=== PATIENT | male | born 1940 | race Caucasian/White ===

== ENCOUNTER → 2016-09-09 13:41 | Outpatient (CLI) | payer MEDICARE, BC ==
[2013-09-29 12:50] VITALS: BMI 29.8
[~2016-09-09 13:41] MED LIST: ASPIRIN325 MG PO; BAYER CHEWABLE81 MG PO; BETAPACE 80 MG80 MG PO; CELEBREX200 MG PO; CORDARONE200 MG PO; DUONEB 2.5-0.5 M3 ML UPD; HEMOCYTE PLUS1 CAP PO; ICAPS AREDS1 TAB.SA PO; LEVOTHROID200 MCG PO; NORCO 10/325 TA1 TA1 PO; OXYCONTIN10 MG PO; SYSTANE 0.3-0.4%5 ML EACH EYE; VYTORIN 10-20 M1 TAB; VYTORIN 10-20 M1 TAB PO; ZANTAC150 MG PO
== END | disposition home or self-care (01) ==
LOC: D.CT 13:41
DX: M25.552 Pain in left hip (principal); M54.5 Low back pain

== ENCOUNTER 2016-12-21 09:02 | Inpatient (IN) | payer MEDICARE, BC ==
[~2016-12-21] VITALS: Ht 175.3 cm; Wt 92.1 kg
[~2016-12-21 09:02] MED LIST changes: +SYNTHROID125 MCG PO
[2016-12-21 10:47] LABS: APPEARANCE SLT CLOUDY (CLEAR); BILIRUBIN NEGATIVE (NEGATIVE); COLOR YELLOW (YELLOW); GLUCOSE NEGATIVE (NEGATIVE); KETONE NEGATIVE (NEGATIVE); LEUKOCYTE ESTERASE 1+ (NEGATIVE); NITRITE NEGATIVE (NEGATIVE); PROTEIN NEGATIVE (NEGATIVE); UROBILINOGEN NORMAL (NORMAL)
[2016-12-21 10:49] LABS: BACTERIA MODERATE /hpf (NONE SEEN); EPITHELIAL CELLS 0-5 /hpf (0-5); MUCUS <1+ /lpf (NONE SEEN); RED CELLS - URINE 0-5 /hpf (0-5); WHITE CELLS - URINE >50 /hpf (0-5)
[2016-12-21 10:53] LABS: BASOPHILS 0.1 % (0-2); EOSINOPHILS 0.3 % (0-7); HEMATOCRIT 44.1 % (42.0-54.0); HEMOGLOBIN 13.9 g/dL (13.5-17.5); IMMATURE GRANULOCYTES 0.3 % (0-5); LYMPHOCYTES 7.4 % (15-50); MCH 24.4 pg (26.0-34.0); MCHC 31.5 g/dL (31.0-37.0); MCV 77.4 fL (80.0-100.0); MEAN PLATELET VOLUME 9.2 fL (7.4-10.4); MONOCYTES 8.3 % (2-11); NEUTROPHILS 83.6 % (40-80); RDW 17.2 % (11.5-14.5)
[2016-12-21 10:54] LABS: PLATELET COUNT 154 10x3/uL (130-400)
[2016-12-21 11:06] LABS: ALBUMIN 3.3 g/dL (3.4-5.0); ALKALINE PHOSPHATASE 93 U/L (46-116); ALT (SGPT) 32 U/L (10-68); BILIRUBIN - TOTAL 2.43 mg/dL (0.2-1.3); CALC OSMOLALITY 285 mosm/kg (275-300); CALCIUM 8.8 mg/dL (8.5-10.1); CARBON DIOXIDE 27.1 mmol/L (21.0-32.0); CHLORIDE - SERUM 105 mmol/L (98-107); CREATININE - SERUM 0.9 mg/dL (0.6-1.3); GLUCOSE 151 mg/dL (74-106); PROTEIN - SERUM 6.3 g/dL (6.4-8.2); SODIUM 141 mmol/L (136-145); UREA NITROGEN 17 mg/dL (7-18); eGFR NON AFRICAN AMERICAN 87 mL/min (90-120)
[2016-12-21 11:14] LABS: MAGNESIUM - SERUM 1.9 mg/dL (1.8-2.4); PRO BNP 578 pg/mL (0-450)
--- NOTE | 2016-12-21 13:39 | NUR ---
TRANSFER FROM ER BY W/C. ELEANORINTED TO ROOM. CALL LIGHT IN REACH. WILL CONT. PLAN OF CARE.
[2016-12-21] MEDS ORDERED: MOBIC7.5 MG PO (14:08)
[2016-12-21] MEDS ORDERED: BAYER CHEWABLE81 MG PO (14:09)
[2016-12-21] MEDS ORDERED: MULTIPLE VITAMI1 TA1 PO (14:10)
[2016-12-21 14:11] VITALS: BP 113/57; Ht 175.3 cm; Wt 92.1 kg
[2016-12-21 16:00] VITALS: BP 109/62
--- NOTE | 2016-12-21 18:17 | NUR ---
URINE SPECIMEN COLLECTED AND TAKEN TO LAB FOR UA. WILL MONITOR.
--- NOTE | 2016-12-21 19:35 | NUR ---
RESUMED CARE OF PT, LYING IN BED RESPIRATIONS EVEN AND UNLABORED ON ROOM AIR. 70 SR WITH BBB ON TELEMETRY. LEFT FOEREARM INFUSING NS @ KVO. NO NEEDS VOICED AT THIS TIME. WILL CONTINUE TO MONITOR. CALL LIGHT IN REACH. SEE NURSE ASSESSMENT.
[2016-12-21 21:30] VITALS: BP 103/55
--- NOTE | 2016-12-22 00:42 | NUR ---
LYING IN BED WITH EYES CLOSED, CALL LIGHT IN REACH. WILL CONTINUE WITH PLAN OF CARE.
[2016-12-22 01:07] VITALS: BP 150/64
[2016-12-22 05:26] VITALS: BP 108/44
--- NOTE | 2016-12-22 06:48 | NUR ---
NO CHANGES FROM PREVIOUS ASSESSMENT, CALL LIGHT IN REACH.
[2016-12-22 07:35] LABS: BASOPHILS 0.1 % (0-2); EOSINOPHILS 0.2 % (0-7); HEMATOCRIT 41.3 % (42.0-54.0); HEMOGLOBIN 12.9 g/dL (13.5-17.5); IMMATURE GRANULOCYTES 0.3 % (0-5); LYMPHOCYTES 8.2 % (15-50); MCH 24.2 pg (26.0-34.0); MCHC 31.2 g/dL (31.0-37.0); MCV 77.5 fL (80.0-100.0); MEAN PLATELET VOLUME 9.6 fL (7.4-10.4); MONOCYTES 8.7 % (2-11); NEUTROPHILS 82.5 % (40-80); PLATELET COUNT 130 10x3/uL (130-400); RBC 5.33 10x6/uL (4.20-6.10); RDW 17.1 % (11.5-14.5); WBC 18.1 10x3/uL (4.8-10.8)
--- NOTE | 2016-12-22 07:43 | NUR ---
AM ROUNDS - PT RESTING QUIETLY, BREATHING UNLABORED AND EQUAL. DENIES NEEDS AND PAIN AT THIS TIME. SIDE RAILS UP X2, FLOOR FREE FROM CLUTTER, BED IN LOWEST POSTION. INTRODUCED SELF AND PLACED NAME ON WHITE BOARD. WILL CTM.
[2016-12-22 08:00] VITALS: BP 94/53
[2016-12-22 08:05] LABS: ALBUMIN 2.8 g/dL (3.4-5.0); ANION GAP 15.6 mmol/L (8-16); BILIRUBIN - TOTAL 2.6 mg/dL (0.2-1.3); CALCIUM 8.2 mg/dL (8.5-10.1); CARBON DIOXIDE 23.8 mmol/L (21.0-32.0); CREATININE - SERUM 1.2 mg/dL (0.6-1.3); POTASSIUM - SERUM 4.4 mmol/L (3.5-5.1); PROTEIN - SERUM 5.2 g/dL (6.4-8.2)
--- NOTE | 2016-12-22 11:30 | NUR ---
SHOWER AND BED CHANGE COMPLETED. PT DENIES OTHER NEEDS AT THIS TIME. WILL CTM.
--- NOTE | 2016-12-22 11:57 | NUR ---
TICK FOUND ON PT LEFT SHOULDER. REMOVED AND DISPOSED OF. ASSESS PT FOR OTHER TICKS AND DID NOT FIND ANY. PT RESTING QUIETLY, WILL CTM.
[2016-12-22 12:00] VITALS: BP 124/65
--- NOTE | 2016-12-22 15:02 | NUR ---
PT RESTING COMFORTABLY. DENIES NEEDS AND PAIN AT THIS TIME. IV RUNNING NS AT KVO. WILL CTM.
[2016-12-22 16:00] VITALS: BP 92/52
--- NOTE | 2016-12-22 18:41 | NUR ---
PT RESTING QUIETLY. DENIES PAIN AND NEEDS AT THIS TIME. BREATHING UNLABORED AND EQUAL. WILL REPORT ON PT CONDITION.
[2016-12-22 19:00] VITALS: BP 131/69
--- NOTE | 2016-12-22 19:59 | NUR ---
RESUMED CARE OF PT, LYING IN BED RESPIRATIONS EVEN AND UNLABORED ON 2LPM VIA NC. UPDRAFT IN PROGRESS. 80 SR ON TELEMETRY. LEFT FOREARM INFUSING NS @ KVO. NO NEEDS VOICED AT THIS TIME. WILL CONTINUE TO MONTIOR. SEE NURSE ASSESSMENT. CALL LIGHT IN REACH.
[2016-12-23] VITALS (7 sets, daily range): BP systolic 105–142; BP diastolic 49–76
--- NOTE | 2016-12-23 06:42 | NUR ---
NO CHANGES FROM PREVIOUS ASSESSMENT, CALL LIGHT IN REACH. WILL CONTINUE WITH PLAN OF CARE.
[2016-12-23 06:47] LABS: BASOPHILS 0.1 % (0-2); EOSINOPHILS 2.1 % (0-7); HEMATOCRIT 42.9 % (42.0-54.0); HEMOGLOBIN 13.9 g/dL (13.5-17.5); IMMATURE GRANULOCYTES 0.4 % (0-5); LYMPHOCYTES 11.9 % (15-50); MCHC 32.4 g/dL (31.0-37.0); MEAN PLATELET VOLUME 9.6 fL (7.4-10.4); MONOCYTES 6.8 % (2-11); NEUTROPHILS 78.7 % (40-80); PLATELET COUNT 128 10x3/uL (130-400); RBC 5.57 10x6/uL (4.20-6.10); RDW 16.8 % (11.5-14.5)
[2016-12-23 06:54] LABS: WBC 9.5 10x3/uL (4.8-10.8)
[2016-12-23 07:02] LABS: ALBUMIN 2.7 g/dL (3.4-5.0); ANION GAP 12.8 mmol/L (8-16); BILIRUBIN - TOTAL 1.99 mg/dL (0.2-1.3); CALCIUM 8.8 mg/dL (8.5-10.1); CARBON DIOXIDE 29.2 mmol/L (21.0-32.0); CREATININE - SERUM 1.2 mg/dL (0.6-1.3); PROTEIN - SERUM 6.1 g/dL (6.4-8.2)
--- NOTE | 2016-12-23 07:30 | NUR ---
AM ROUNDS - PT RESTING QUIETLY, BREATHING UNLABORED AND EQUAL, 2L O2 VIA NC. REPORTS HAVING DIFFICULTY URINATING LAST NIGHT DUE TO MUCINEX. MUCINEX HAS BEEN D/C. SIDE RAILS UP X2, BED IN LOWEST POSTION, CALL LIGHT IN REACH, WILL CTM.
--- NOTE | 2016-12-23 13:20 | NUR ---
PT TOOK A SHOWER AND LINENS CHANGED. DENIES PAIN AT THIS TIME. PT STILL HAVING A PRODUCTIVE COUGH. WILL CTM.
--- NOTE | 2016-12-23 19:30 | NUR ---
ALERT/AWAKE DENIES PAIN OR ANY NEEDS. HAS 02 AT 2L/NC. RR 18 EVEN U/L. IV IN L FA INTACT SL. TELEMETRY SHOWS 76 SR. ORIENTED TO CALL LIGHT FOR ANY NEEDS.
--- NOTE | 2016-12-23 22:30 | NUR ---
RETURNING TO BED FROM BATHROOM. REQUESTED LIGHTS OFF AND DOOR PARTIAL CLOSED TO SLEEP. BED IS LOW WITH SR UP X2. CL IN REACH.
--- NOTE | 2016-12-24 01:00 | NUR ---
RESTING QUIETLY WITH EYES CLOSED. RR 16 EVEN U/L. NO SIGNS/SYMPTOMS OF PAIN OR DISCOMFORT. WILL CONT TO MONITOR.
[2016-12-24 03:24] VITALS: BP 124/74
[2016-12-24 06:43] LABS: BASOPHILS 0.2 % (0-2); HEMATOCRIT 40.4 % (42.0-54.0); HEMOGLOBIN 12.9 g/dL (13.5-17.5); IMMATURE GRANULOCYTES 0.4 % (0-5); LYMPHOCYTES 34.7 % (15-50); MCH 24.3 pg (26.0-34.0); MCHC 31.9 g/dL (31.0-37.0); MCV 76.1 fL (80.0-100.0); MEAN PLATELET VOLUME 9.8 fL (7.4-10.4); MONOCYTES 12.5 % (2-11); NEUTROPHILS 48.2 % (40-80); PLATELET COUNT 146 10x3/uL (130-400); RBC 5.31 10x6/uL (4.20-6.10)
[2016-12-24 06:49] LABS: WBC 5.5 10x3/uL (4.8-10.8)
[2016-12-24 07:20] LABS: ALBUMIN 2.6 g/dL (3.4-5.0); ALKALINE PHOSPHATASE 67 U/L (46-116); CALCIUM 8.5 mg/dL (8.5-10.1); CARBON DIOXIDE 27.3 mmol/L (21.0-32.0); CHLORIDE - SERUM 107 mmol/L (98-107); CREATINE KINASE 83 UL (21-232); GLUCOSE 89 mg/dL (74-106); POTASSIUM - SERUM 3.6 mmol/L (3.5-5.1); PROTEIN - SERUM 5.8 g/dL (6.4-8.2); SODIUM 141 mmol/L (136-145); eGFR NON AFRICAN AMERICAN 77 mL/min (90-120)
[2016-12-24 07:30] LABS: ALT (SGPT) 34 U/L (10-68); CALC OSMOLALITY 278 mosm/kg (275-300); UREA NITROGEN 11 mg/dL (7-18)
[2016-12-24 08:00] VITALS: BP 145/74
[2016-12-24 12:00] VITALS: BP 125/71
[2016-12-24] MEDS ORDERED: VIBRAMYCIN 100100 MG PO (12:46)
[2016-12-24] MEDS ORDERED: COMBIVENT RESPIM4 GM INH (14:13)
--- NOTE | 2016-12-24 15:31 | NUR ---
Patient Name: SHERLEY CROCKETT Admission Status: ER Accout number: [id number] Admission Date: 12-21-2016 : 1940 Admission Diagnosis:SHORTNESS OF BREATH Attending: ELISEO Current LOS: 3 Anticipated DC Date: 12-24-2016 Planned Disposition: Home Primary Insurance: MEDICARE A & B Discharge Planning Comments: * Is the patient Alert and Oriented? Yes 0 * How many steps to enter\exit or inside your home? 1 0 * PCP DR. LEVY 0 * Pharmacy [facility] 0 * Preadmission Environment Home with Family 0 * ADLs Independent 0 * Equipment Nebulizer 0 * Other Equipment NO MEDICAL EQUIPMENT PROVIDER PREFERENCE 0 * List name and contact numbers for known caregivers / representatives who currently or will assist patient after discharge: ERIC CROCKETT, SPOUSE, 0 * Community resources currently utilized None 0 * Please name any agencies selected above. NONE 0 * Additional services required to return to the preadmission environment? No 0 * Can the patient safely return to the preadmission environment? Yes 0 * Has this patient been hospitalized within the prior 30 days at any hospital? No 0 CM MET WITH PT IN ROOM TO DISCUSS DISCHARGE PLANNING AND NEEDS. PT REPORTS LIVING AT HOME INDEPENDENTLY WITH SPOUSE. PT HAS NO MEDICAL EQUIPMENT AND NO OUTSIDE SERVICES ASSISTING IN THE HOME. CM DISCUSSED AVAILABILITY OF HOME HEALTH, REHAB SERVICES AND MEDICAL EQUIPMENT. PT DENIES DISCHARGE NEEDS, REPORTS HIS IS HERE TO PICK HIM UP FOR DISCHARGE HOME TODAY. IMPORTANT MESSAGE FROM MEDICARE PROVIDED AND EXPLAINED. Stores Despatch Hand: Roberto Hendrix
--- NOTE | 2016-12-24 15:45 | NUR ---
D/C PER PERSONAL VEHICLE W/
== END 2016-12-24 17:15 | disposition home or self-care (01) | DRG 194 ==
LOC: D.ER 09:02 → D.M2 12:40
PROVIDERS: Nurse Practitioner Family; ADMIT Family Medicine Adult Medicine
DX: J18.9 Pneumonia, unspecified organism (principal); N39.0 Urinary tract infection, site not specified; I25.10 Atherosclerotic heart disease of native coronary artery without angina pectoris; S40.262A Insect bite (nonvenomous) of left shoulder, initial encounter; S90.862A Insect bite (nonvenomous), left foot, initial encounter; W57.XXXA Bitten or stung by nonvenomous insect and other nonvenomous arthropods, initial encounter; E78.5 Hyperlipidemia, unspecified; E03.9 Hypothyroidism, unspecified

== ENCOUNTER → 2017-08-25 18:26 | Outpatient (CLI) | payer MEDICARE, BC ==
[2016-12-21 14:11] VITALS: BMI 27.3
[~2017-08-25 18:26] MED LIST changes: +COMBIVENT RESPIM4 GM INH; +MOBIC7.5 MG PO; +MULTIPLE VITAMI1 TA1 PO; +VIBRAMYCIN 100100 MG PO
== END | disposition home or self-care (01) ==
LOC: D.LABREF 18:26
DX: N39.0 Urinary tract infection, site not specified (principal); R31.9 Hematuria, unspecified

== ENCOUNTER → 2017-09-02 09:10 | Outpatient (CLI) | payer MEDICARE, BC ==
[2016-12-21 14:11] VITALS: BMI 27.3
[~2017-09-02 09:10] MED LIST changes: +FLOMAX0.4 MG PO; +PROSCAR5 MG PO
== END | disposition home or self-care (01) ==
LOC: D.US 08-31 10:00 → D.CT 08-31 10:30 → D.US 08-31 10:30 → D.CT 08-31 11:00
DX: R31.9 Hematuria, unspecified (principal); R97.20 Elevated prostate specific antigen [PSA]

== ENCOUNTER 2017-09-09 08:44 | Day surgery (SDC) | payer MEDICARE, BC ==
[2017-09-08 09:47] LABS: HEMATOCRIT 47.6 % (42.0-54.0); HEMOGLOBIN 15.6 g/dL (13.5-17.5); MCH 24.4 pg (26.0-34.0); MCHC 32.8 g/dL (31.0-37.0); MCV 74.5 fL (80.0-100.0); MEAN PLATELET VOLUME 8.8 fL (7.4-10.4); RBC 6.39 10x6/uL (4.20-6.10); RDW 14.2 % (11.5-14.5); WBC 9.3 10x3/uL (4.8-10.8)
[~2017-09-09] VITALS: Ht 175.3 cm; Wt 83.9 kg
--- NOTE | ~2017-09-09 | OP ---
PATIENT NAME: SJ CROCKETT MEDICAL RECORD: [id number] :39 LOCATION:[facility] ADMISSION DATE: SURGEON: SURJIT WIGGINS MD DATE OF OPERATION: 09/09/2017 SURGEON: Surjit Wiggins MD EDUCATIONAL RECRUITER: ANGELA by Manjinder Sen CRNA. PREOPERATIVE DIAGNOSES: Sj hematuria with elevated PSA of 10.07. Abnormal digital rectal examination with a hard left prostatic nodule. PROCEDURE: Cystoscopy and transrectal ultrasound and prostate biopsy. FINDINGS: Left inguinal hernia with fat extending into the scrotum. Buried penis. 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 The prostatic urethra is quite vascular. In the bladder, he has single ureteral orifices bilaterally. No bladder tumors. Heavily trabeculated bladder with diverticula. No bladder stones. On transrectal ultrasound, he has a 75 gram prostate with intraprostatic stones and multiple hypoechoic areas, especially at the left apex. SPECIMENS: Prostate biopsy cores. BLOOD LOSS: None. CLINICAL HISTORY: This is a 77-year-old male, who presented with a history of painless gross hematuria. He was also found to have a PSA elevation of 10.07 on 07/09/2017. He previously had a prostate biopsy by Dr. Bynum in [place], [place] 15 years ago. That biopsy was negative for prostate cancer. He has no family history of prostate cancer. He has significant bladder outlet obstruction symptoms. He was previously on BPH medications, but he ran out of them. He had a hematuria workup, which included urine culture, which showed no growth. Urine cytology was benign. A CT scan of the abdomen and pelvis showed normal kidneys and a very enlarged prostate. There was a large left inguinal hernia with fat going down into the left hemiscrotum. Today, he is having cystoscopy for part of his workup for the hematuria. Also, he will have a transrectal ultrasound and prostate biopsy. He is allergic to CODEINE, MORPHINE, and MUCINEX D. He was given gentamicin 80 grams IV front end engineer to the OR. DESCRIPTION OF PROCEDURE: The patient was given IV sedation. He was placed in the dorsal lithotomy position and prepped and draped. Lidocaine jelly was inserted into the urethra. A 17-Macedonian cystoscope with 30-degree lens was used for visualization. Penile urethra was normal. The bulbar urethra was vascular. The prostatic urethra also was quite vascular. The patient's lateral lobes are large and obstructive. He also has a significant median lobe, which deviates the scope anteriorly. By angling the scope down into the bladder, we could see single ureteral orifices on each side. The bladder wall itself was quite vascular also, but no bladder tumors were seen. Multiple bladder diverticula were noted. No bladder stones were seen. At this point, the bladder was emptied through the cystoscope sheath and then we proceeded to the transrectal ultrasound. The drapes were removed and the transrectal ultrasound probe was introduced. Prostate size measurements were obtained and he has a very large prostate at 75 OPERATIVE REPORT [id number] lay. Intraprostatic stones could be seen. Also, multiple hypoechoic areas could be seen within the substance of the prostate. On the left side, we could see a large hypoechoic nodule extending from the mid portion of the prostate to the apex. We took sextant biopsies with at least 3 cores from each sextant. Once all the specimens were obtained, the procedure was terminated. The patient was then sent to the recovery room. He will have followup with me next week to review his pathology results. Also, I will have him see Dr. Mahoney regarding his left inguinal hernia. TRANSINT:[id number] Voice Confirmation ID: [id number] DOCUMENT ID: [id number] SURJIT WIGGINS MD at 1203 CC: [id number] DICTATION DATE: 09/09/17 1119 KEY CARRIER: 09/09/17 1144 [facility] [address] [place] [address]
[2017-09-09 08:18] VITALS: BP 124/59; Ht 175.3 cm; Wt 83.9 kg
[~2017-09-09 08:44] MED LIST changes: -FLOMAX0.4 MG PO; -PROSCAR5 MG PO
== END 2017-09-09 12:30 | disposition home or self-care (01) ==
LOC: D.OPS 08:44 → D.PAN 09:00 → D.OPS 09:00
PROVIDERS: Anesthesiology
DX: R31.0 Gross hematuria (principal); R97.20 Elevated prostate specific antigen [PSA]; I25.10 Atherosclerotic heart disease of native coronary artery without angina pectoris; I10 Essential (primary) hypertension; Z95.1 Presence of aortocoronary bypass graft; Z01.812 Encounter for preprocedural laboratory examination

== ENCOUNTER 2017-10-24 16:42 | Inpatient (IN) | payer MEDICARE, BC ==
[~2017-10-24] VITALS: Ht 175.3 cm; Wt 84.1 kg
--- NOTE | ~2017-10-24 | CN ---
PATIENT NAME:SHERLEY CROCKETT MEDICAL RECORD: [id number] : 39 LOCATION:D. D.2140 ADMIT DATE: 10/24/17 ACCOUNT: [id number] CONSULTING PHYSICIAN: OLMAN SAAVEDRA MD REFERRING PHYSICIAN: TAMMI PONCE MD DATE OF CONSULTATION: 10/25/2017 HISTORY OF PRESENT ILLNESS: A 77-year-old gentleman with a history of coronary artery disease, status post coronary artery bypass grafting. He has a history of sick sinus syndrome, status post pacemaker placement and dyslipidemia, admitted with syncope, found to have elevated thresholds on his V lead with some pauses. Also, he has been in a mode switch, AAI to DDD. Pacemaker has been reprogrammed. Thresholds are elevated from previous lead output, elevated and turned off autocapture. PAST MEDICAL HISTORY: Includes; 1. History of coronary artery disease. 2. Hypertension. 3. Hyperlipidemia. 4. Hypothyroidism, on replacement. MEDICATIONS: Include Synthroid 125 mcg daily, aspirin 81 daily, Mobic 15 at bedtime, Betapace 80 b.i.d., Vytorin 10. ALLERGIES: PSEUDOEPHEDRINE, CODEINE, MORPHINE, and GUAIFENESIN. SOCIAL HISTORY: . He is a nonsmoker, nondrinker. He is able to take care of all ADLs, does try to walk on a regular basis. REVIEW OF SYSTEMS: The patient reports easy bruising but reports no swollen glands. The patient reports no fever, no night sweats, no significant weight gain, no significant weight loss. No significant exercise tolerance. The patient reports no dry eyes, no irritation, no vision change. Patient reports no difficulty hearing and no ear pain. Patient reports no frequent nose bleeds or nose and sinus problems. Patient reports on arm pain on exertion. No shortness of breath while lying down. No history of heart murmur. Patient reports no cough, no wheezing or coughing up blood. Patient reports no abdominal pain, no vomiting. Normal appetite. No diarrhea and not vomiting blood. No nausea and no constipation. Patient reports no incontinence. No difficulty urinating. No hematuria. No increased frequency. Patient reports no muscle aches. No weakness, no arthralgias, no back pain. No swelling of the extremities. Patient reports no abnormal mole, no jaundice, no rashes. Reports no loss of consciousness. No weakness and no numbness. No seizures, dizziness, or headaches. The patient reports no depression, no sleep disturbance, feeling safe in a relationship and no alcohol abuse. Patient reports on fatigue. Reports no runny nose or sinus pressure. No itching, no hives, and no frequent sneezing. PHYSICAL EXAMINATION: GENERAL: Pleasant gentleman, in no acute distress. VITAL SIGNS: Blood pressure 107/62, pulse 60 and regular. HEENT: Normocephalic, atraumatic. NECK: No bruits noted. HEART: Regular, II/ systolic ejection murmur. LUNGS: Good air excursion. CONSULT REPORT [id number] SHERLEY CROCKETT ABDOMEN: Soft, nontender. EXTREMITIES: Pulses 2+ with no edema. IMPRESSION: Syncope/near syncope related to pacemaker. Changes were made as described above. Okay to discharge from a cardiovascular standpoint. He will be seen back in the office to assess changes. TRANSINT:[id number] Voice Confirmation ID: [id number] DOCUMENT ID: [id number] OLMAN SAAVEDRA MD at 1132 CC: [id number] DICTATION DATE: 10/25/17 1047 BETTING AGENCY COUNTER CLERK: 10/25/17 1139 ADM IN [facility] [address] [place] [address]
--- NOTE | ~2017-10-24 | HP ---
PATIENT: SHERLEY CROCKETT MEDICAL RECORD: [id number] ACCOUNT: [id number] LOCATION:[facility] D.2305 : 39 ADMISSION DATE: 10/24/17 HISTORY AND PHYSICAL EXAMINATION HISTORY OF PRESENT ILLNESS: This 77-year-old gentleman presented to the Emergency Room upon day of admission with complaint of generalized weakness and shortness of breath. The patient was in his usual state of health. He had 2 episodes of what was near syncope at home. did observe both of them. No seizure activity occurred. The patient did fall and briefly bumped his head, had no laceration, bruising or loss of consciousness with that on the second one. He came in for evaluation to be obtained. The patient was resting comfortably in the ICU for monitoring after he had a rapid response on the floor. The patient was admitted to the floor, was in no acute distress at the time, had complaint of some shivering and just feeling cool. IV fluids were going and the patient was given his blanket and observed and then shortly thereafter had a loss of consciousness and monitor showed the patient went into asystole. Rapid response was obtained and the patient was immediately given atropine. He had only a 12-second pulse before initiation of the heart rate returned. The patient has presently been monitored by [facility] and done appropriately. He was moved to the ICU for further monitoring, has been alert, active and going without any difficulty since that time. His is present at his bedside. PAST MEDICAL HISTORY: Significant for history of recent tick fever. He was admitted to the hospital several months ago and worked up appropriately then. He has a history of arrhythmia, coronary artery disease, hyperlipidemia, sleep apnea, multiple arthritic difficulties, BPH, hypertension, hypothyroidism, osteoarthritis, constipation rarely, and glaucoma. PAST SURGICAL HISTORY: Includes gallbladder surgery, bilateral shoulder surgery. He has had partial amputation of finger on his left hand. He has also had 2 partial amputations on his right hand. He has had a thyroidectomy, total knee replacement, right hip surgery, CABG. ALLERGIES: THE PATIENT IS ALLERGIC TO CODEINE, MORPHINE, GUAIFENESIN, AND PSEUDOEPHEDRINE. MEDICATIONS: Include Flomax; Proscar; Levothroid; sotalol, Betapace. He is also on vitamin, aspirin 81 mg, Vytorin, meloxicam and then Systane eye drops. SOCIAL HISTORY: The patient does not smoke, does not drink alcohol. PHYSICAL EXAMINATION: VITAL SIGNS: At the history and physical as below. GENERAL: He is a well-developed, well-nourished, very pleasant 77-year-old white male that is alert, oriented and awake, in no acute distress. EXTREMITIES: He does have surgical scars that are present. He does have a pacemaker present on his left chest wall. HEENT: His pupils are equal, round and reactive to light. Extraocular movements are intact. Oral cavity, oropharynx otherwise clear. NECK: No cervical or pharyngeal adenopathy. No nuchal rigidity. LUNGS: Clear to auscultation bilaterally. HEART: Regular rate and rhythm with a I/ systolic ejection murmur. ABDOMEN: Soft, nontender, positive bowel sounds. No hepatosplenomegaly, no HISTORY AND PHYSICAL [id number] SCARAMUZZA,SHERLEY L masses. EXTREMITIES: Arthritic changes are noted. Partial amputations as described above. NEUROLOGIC: He is able to move all 4 extremities. ASSESSMENT: 1. Arrhythmia. 2. Syncope. 3. Pacemaker adjustment. 4. Coronary artery disease. 5. Hypotension. 6. Asystole that converted with rapid response. 7. Elevated white count. The patient will be admitted to the hospital. We will recheck laboratory on this, monitoring for at least 24 hours observation post-rapid response. Cardiology consultation has been obtained with Dr. Delong and his recommendations are being followed. We will transfer the patient to the floor and continue to monitor. TRANSINT:[id number] Voice Confirmation ID: [id number] DOCUMENT ID: [id number] TAMMI PONCE MD at 1647 CC: [id number] DICTATION DATE: 10/25/17 1207 MOBILE MARKETING SPECIALIST: 10/25/17 1252 ADM IN [facility] [address] [place] [address]
[2017-10-24 17:21] LABS: BASOPHILS 0.1 % (0-2); EOSINOPHILS 1.1 % (0-7); HEMATOCRIT 44.5 % (42.0-54.0); HEMOGLOBIN 14.6 g/dL (13.5-17.5); IMMATURE GRANULOCYTES 0.2 % (0-5); LYMPHOCYTES 16.8 % (15-50); MCH 24.7 pg (26.0-34.0); MCHC 32.8 g/dL (31.0-37.0); MCV 75.2 fL (80.0-100.0); MONOCYTES 7.4 % (2-11); NEUTROPHILS 74.4 % (40-80); PLATELET COUNT 181 10x3/uL (130-400); RBC 5.92 10x6/uL (4.20-6.10); RDW 15.4 % (11.5-14.5); WBC 12.3 10x3/uL (4.8-10.8)
[2017-10-24 17:34] LABS: ALBUMIN 3.9 g/dL (3.4-5.0); ALKALINE PHOSPHATASE 110 U/L (46-116); ALT (SGPT) 44 U/L (10-68); BILIRUBIN - TOTAL 1.58 mg/dL (0.2-1.3); CALC OSMOLALITY 289 mosm/kg (275-300); CALCIUM 9.2 mg/dL (8.5-10.1); CHLORIDE - SERUM 106 mmol/L (98-107); CREATININE - SERUM 0.9 mg/dL (0.6-1.3); GLUCOSE 138 mg/dL (74-106); POTASSIUM - SERUM 4.1 mmol/L (3.5-5.1); SODIUM 143 mmol/L (136-145); UREA NITROGEN 21 mg/dL (7-18); eGFR NON AFRICAN AMERICAN 87 mL/min (90-120)
[2017-10-24 17:37] LABS: CREATINE KINASE 106 UL (21-232); TROPONIN-I 0.017 ng/mL (0.000-0.060)
[2017-10-24 19:59] LABS: APPEARANCE CLEAR (CLEAR); COLOR DK YELLOW (YELLOW)
[2017-10-24 20:00] LABS: BILIRUBIN NEGATIVE (NEGATIVE); GLUCOSE NEGATIVE (NEGATIVE); KETONE NEGATIVE (NEGATIVE); NITRITE NEGATIVE (NEGATIVE); PROTEIN NEGATIVE (NEGATIVE); UROBILINOGEN NORMAL (NORMAL)
[2017-10-24 20:01] LABS: WHITE CELLS - URINE 0-5 /hpf (0-5)
[2017-10-24 20:04] LABS: RED CELLS - URINE 0-5 /hpf (0-5)
[2017-10-24 20:05] LABS: BACTERIA FEW /hpf (NONE SEEN); MUCUS <1+ /lpf (NONE SEEN)
[2017-10-24 23:53] LABS: BASOPHILS 0.1 % (0-2); EOSINOPHILS 0.6 % (0-7); HEMATOCRIT 40.5 % (42.0-54.0); IMMATURE GRANULOCYTES 0.2 % (0-5); LYMPHOCYTES 14.8 % (15-50); MCHC 32.1 g/dL (31.0-37.0); MCV 74.7 fL (80.0-100.0); MEAN PLATELET VOLUME 9.5 fL (7.4-10.4); MONOCYTES 6.1 % (2-11); NEUTROPHILS 78.2 % (40-80); PLATELET COUNT 174 10x3/uL (130-400); RBC 5.42 10x6/uL (4.20-6.10); RDW 15.5 % (11.5-14.5); WBC 12.4 10x3/uL (4.8-10.8)
[2017-10-24 23:57] LABS: INR 1.04 (0.85-1.17); PROTIME 13.2 SECONDS (11.6-15.0)
[2017-10-24 23:58] LABS: APTT 26.8 SECONDS (22.8-39.4)
[2017-10-25] VITALS (23 sets, daily range): BP systolic 93–134; BP diastolic 48–94; Ht 175.3 cm; Wt 84.1 kg
[2017-10-25 00:18] LABS: CALC OSMOLALITY 288 mosm/kg (275-300); CALCIUM 8.7 mg/dL (8.5-10.1); CARBON DIOXIDE 26.1 mmol/L (21.0-32.0); CHLORIDE - SERUM 108 mmol/L (98-107); CKMB 2.5 U/L (0.0-3.6); CREATINE KINASE 89 UL (21-232); CREATININE - SERUM 0.8 mg/dL (0.6-1.3); GLUCOSE 148 mg/dL (74-106); POTASSIUM - SERUM 4.1 mmol/L (3.5-5.1); SODIUM 142 mmol/L (136-145); TROPONIN-I 0.022 ng/mL (0.000-0.060); UREA NITROGEN 20 mg/dL (7-18); eGFR NON AFRICAN AMERICAN > 90 mL/min (90-120)
[2017-10-25] MEDS ORDERED: FLOMAX0.4 MG PO (08:52)
[2017-10-25] MEDS ORDERED: PROSCAR5 MG PO (08:53)
[2017-10-25 13:45] LABS: CKMB 1.7 U/L (0.0-3.6); CREATINE KINASE 85 UL (21-232); TROPONIN-I < 0.017 ng/mL (0.000-0.060)
[2017-10-25 19:00] LABS: CKMB 1.3 U/L (0.0-3.6); CREATINE KINASE 75 UL (21-232)
[2017-10-26 01:05] LABS: CKMB 1.5 U/L (0.0-3.6); CREATINE KINASE 81 UL (21-232); TROPONIN-I 0.017 ng/mL (0.000-0.060)
[2017-10-26 05:09] VITALS: BP 129/60
[2017-10-26 05:14] LABS: BASOPHILS 0.1 % (0-2); EOSINOPHILS 2.9 % (0-7); HEMATOCRIT 39.4 % (42.0-54.0); HEMOGLOBIN 12.6 g/dL (13.5-17.5); IMMATURE GRANULOCYTES 0.2 % (0-5); LYMPHOCYTES 27.6 % (15-50); MCH 24.1 pg (26.0-34.0); MCV 75.5 fL (80.0-100.0); MEAN PLATELET VOLUME 9.2 fL (7.4-10.4); MONOCYTES 9.2 % (2-11); PLATELET COUNT 146 10x3/uL (130-400); RBC 5.22 10x6/uL (4.20-6.10); RDW 15.9 % (11.5-14.5)
[2017-10-26 05:18] LABS: WBC 8.2 10x3/uL (4.8-10.8)
[2017-10-26 05:40] LABS: ALKALINE PHOSPHATASE 86 U/L (46-116); ALT (SGPT) 36 U/L (10-68); BILIRUBIN - TOTAL 1.16 mg/dL (0.2-1.3); CALC OSMOLALITY 286 mosm/kg (275-300); CALCIUM 8.2 mg/dL (8.5-10.1); CARBON DIOXIDE 29.2 mmol/L (21.0-32.0); CHLORIDE - SERUM 108 mmol/L (98-107); CREATININE - SERUM 0.7 mg/dL (0.6-1.3); GLUCOSE 101 mg/dL (74-106); PHOSPHOROUS 3.5 mg/dL (2.5-4.9); POTASSIUM - SERUM 3.9 mmol/L (3.5-5.1); PRO BNP 436 pg/mL (0-450); PROTEIN - SERUM 5.8 g/dL (6.4-8.2); SODIUM 143 mmol/L (136-145); THYROID STIMULATING HORMONE 0.06 uIU/mL (0.36-3.74); UREA NITROGEN 18 mg/dL (7-18); eGFR NON AFRICAN AMERICAN > 90 mL/min (90-120)
[2017-10-26 05:42] LABS: ALBUMIN 2.9 g/dL (3.4-5.0)
[2017-10-26 09:42] VITALS: BP 146/66
[2017-10-26 12:39] VITALS: BP 150/70
== END 2017-10-26 13:37 | disposition home or self-care (01) | DRG 312 ==
LOC: D.ER 16:42 → D.EDHOLD 18:46 → D.M2 18:46 → D.ICU 10-25 00:28 → D.M2 10-25 21:41
PROVIDERS: Emergency Medicine; Family Medicine; Internal Medicine Interventional Cardiology; Physician Assistant Medical
DX: R55 Syncope and collapse (principal); Z45.018 Encounter for adjustment and management of other part of cardiac pacemaker; I25.10 Atherosclerotic heart disease of native coronary artery without angina pectoris; E78.5 Hyperlipidemia, unspecified; G47.30 Sleep apnea, unspecified; N40.0 Benign prostatic hyperplasia without lower urinary tract symptoms; I10 Essential (primary) hypertension; E03.9 Hypothyroidism, unspecified; M19.90 Unspecified osteoarthritis, unspecified site; I95.9 Hypotension, unspecified; D50.9 Iron deficiency anemia, unspecified

== ENCOUNTER 2017-12-03 17:12 | Inpatient (IN) | payer MEDICARE, BC ==
[~2017-12-03] VITALS: Ht 175.3 cm; Wt 87.1 kg
--- NOTE | ~2017-12-03 | DS ---
PATIENT:SHERLEY CROCKETT :38 MEDICAL RECORD: [id number] DISCHARGE SUMMARY ADMISSION DATE: 12/03/17 DISCHARGE DATE: 12/04/17 DATE OF DISCHARGE: 12/04/2017 ADMITTING DIAGNOSES: Severe bradycardia secondary to pacer malfunction, coronary artery disease, hypertension, thoracic aortic aneurysm. DISCHARGE DIAGNOSES: Severe bradycardia secondary to pacer malfunction, coronary artery disease, hypertension, thoracic aortic aneurysm. CONSULTING PHYSICIANS: 1. Mane Delong MD 2. Murphy Patel MD BRIEF HISTORY AND HOSPITAL COURSE: This is a 77-year-old white male who presents with a syncopal episode, had a similar episode a month ago. He has a pacemaker, but it appears not to be functioning correctly. He is on sotalol at home. The patient underwent reprogramming of his pacemaker with subsequent improvement of his rate and rhythm. He was seen in consultation by cardiovascular surgery in regards to 5-cm ascending thoracic aortic aneurysm and will be following up with Dr. Stein upon discharge. The patient was discharged on 12/04 in stable condition with instructions to follow up with Dr. Patel and his primary care physician. See chart for more specifics of his stay. TRANSINT:[id number] Voice Confirmation ID: [id number] DOCUMENT ID: [id number] REAL GONSLAES DO at 1355 CC: [id number] DICTATION DATE: 12/31/171950 SEAM PRESSER: 01/01/18 0002 DIS IN 12/04/17 [id number] [place] [address]
[~2017-12-03 17:12] MED LIST changes: +FLOMAX0.4 MG PO; +PROSCAR5 MG PO
[2017-12-03 17:56] LABS: BASOPHILS 0.3 % (0-2); EOSINOPHILS 3.1 % (0-7); HEMATOCRIT 43.2 % (42.0-54.0); HEMOGLOBIN 14.1 g/dL (13.5-17.5); IMMATURE GRANULOCYTES 0.2 % (0-5); LYMPHOCYTES 18.5 % (15-50); MCH 24.5 pg (26.0-34.0); MCHC 32.6 g/dL (31.0-37.0); MCV 75.1 fL (80.0-100.0); MEAN PLATELET VOLUME 9.2 fL (7.4-10.4); MONOCYTES 8.1 % (2-11); NEUTROPHILS 69.8 % (40-80); PLATELET COUNT 159 10x3/uL (130-400); RBC 5.75 10x6/uL (4.20-6.10); RDW 15.2 % (11.5-14.5); WBC 10.2 10x3/uL (4.8-10.8)
[2017-12-03 18:08] LABS: ALBUMIN 3.5 g/dL (3.4-5.0); ALKALINE PHOSPHATASE 121 U/L (46-116); ALT (SGPT) 31 U/L (10-68); BILIRUBIN - TOTAL 1.66 mg/dL (0.2-1.3); CARBON DIOXIDE 27.9 mmol/L (21.0-32.0); CHLORIDE - SERUM 107 mmol/L (98-107); POTASSIUM - SERUM 3.5 mmol/L (3.5-5.1); PROTEIN - SERUM 6.5 g/dL (6.4-8.2); SODIUM 144 mmol/L (136-145); UREA NITROGEN 18 mg/dL (7-18); eGFR NON AFRICAN AMERICAN 77 mL/min (90-120)
[2017-12-03 18:13] LABS: CREATINE KINASE 53 UL (21-232)
[2017-12-03 18:14] LABS: CALC OSMOLALITY 291 mosm/kg (275-300); GLUCOSE 156 mg/dL (74-106); TROPONIN-I < 0.017 ng/mL (0.000-0.060)
[2017-12-03 18:47] LABS: CKMB 0.7 U/L (0.0-3.6); PRO BNP 321 pg/mL (0-450)
[2017-12-03 18:50] LABS: INR 1.04 (0.85-1.17); PROTIME 13.2 SECONDS (11.6-15.0)
[2017-12-03 18:52] LABS: D-DIMER-QUANTITATIVE 1.62 ug/mLFEU (0.20-0.54)
[2017-12-03 21:33] LABS: THYROID STIMULATING HORMONE 0.09 uIU/mL (0.36-3.74)
[2017-12-03 22:00] VITALS: BP 129/65
[2017-12-03 22:05] VITALS: BP 135/73; BMI 28.4
[2017-12-03 23:00] VITALS: BP 133/68
[2017-12-04] VITALS (14 sets, daily range): BP systolic 102–152; BP diastolic 58–93; Ht 175.3 cm; Wt 87.1 kg
[2018-01-12] MEDS ORDERED: MUCINEX600 MG PO (13:38)
[2018-01-12] MEDS ORDERED: SYSTANE 0.3-0.4%5 ML EACH EYE (13:39)
[2018-01-12] MEDS ORDERED: SINGULAIR10 MG PO (13:40)
[2018-01-12] MEDS ORDERED: AZELASTINE137 MCG/0. NASAL (13:40)
[2018-01-12] MEDS ORDERED: PROAIR HFA ORAL INH (13:41)
[2018-01-12] MEDS ORDERED: POTASSIUM99 M1 (13:42)
[2018-01-12] MEDS ORDERED: VYTORIN 10-40 M1 TAB PO (13:45)
== END 2017-12-04 17:06 | disposition home or self-care (01) | DRG 312 ==
LOC: D.ER 17:12 → D.EDHOLD 19:27 → D.ER 19:27 → D.EDHOLD 19:47 → D.M2 19:47 → D.EDHOLD 21:11 → D.ICU 21:11
PROVIDERS: Family Medicine
DX: R55 Syncope and collapse (principal); T82.119A Breakdown (mechanical) of unspecified cardiac electronic device, initial encounter; I49.5 Sick sinus syndrome; I25.10 Atherosclerotic heart disease of native coronary artery without angina pectoris; E78.5 Hyperlipidemia, unspecified; I10 Essential (primary) hypertension; I71.4 Abdominal aortic aneurysm, without rupture; R00.1 Bradycardia, unspecified

== ENCOUNTER 2018-01-13 07:40 | Day surgery (SDC) | payer MEDICARE, BC ==
[2018-01-12 14:30] LABS: BASOPHILS 0.1 % (0-2); EOSINOPHILS 3.2 % (0-7); HEMATOCRIT 45.1 % (42.0-54.0); HEMOGLOBIN 14.7 g/dL (13.5-17.5); IMMATURE GRANULOCYTES 0.2 % (0-5); LYMPHOCYTES 30.4 % (15-50); MCH 24.5 pg (26.0-34.0); MCHC 32.6 g/dL (31.0-37.0); MEAN PLATELET VOLUME 9.6 fL (7.4-10.4); MONOCYTES 6.4 % (2-11); NEUTROPHILS 59.7 % (40-80); PLATELET COUNT 183 10x3/uL (130-400); RBC 6.01 10x6/uL (4.20-6.10); RDW 14.3 % (11.5-14.5); WBC 9.3 10x3/uL (4.8-10.8)
[~2018-01-13] VITALS: Ht 175.3 cm; Wt 86.2 kg
--- NOTE | ~2018-01-13 | OP ---
PATIENT NAME: SHERLEY CROCKETT MEDICAL RECORD: [id number] :38 LOCATION:D.[facility] ADMISSION DATE: SURGEON: SURJIT LEE MD DATE OF OPERATION: 01/13/2018 PREOPERATIVE DIAGNOSIS: Large left inguinal hernia, incarcerated. POSTOPERATIVE DIAGNOSES: Large left inguinal hernia, incarcerated with a large left cord lipoma. PROCEDURES: 1. Left inguinal hernia repair with bilayered preperitoneal polypropylene mesh. 2. Excision of left cord lipoma. 3. Left orchiectomy. SURGEON: Surjit Lee MD BIOLOGICAL LAB TECHNICIAN: None. BLOOD LOSS: 100 cc. ANESTHESIA: General. COMPLICATIONS: None. The patient was aware that the left orchiectomy may be necessary in order to perform the herniorrhaphy and to provide him with a stable repair. The risks, possible complications and alternatives to the procedure were explained to the patient. This included the risk of bleeding requiring emergency reoperation, infection, intestinal injury. OPERATIVE COURSE: The patient was conveyed the operating room electively on 01/13/2018. General anesthesia was induced by the anesthesia staff. The abdomen and genitals were sterilely prepped and draped. A transverse incision was accomplished in the left groin. Sharp dissection was carried down through skin and subcutaneous tissue as well as Elpidio fascia. The external oblique aponeurosis was incised along the direction of its fibers. I bluntly dissected down through the internal oblique and transversus abdominis muscle layers. A preperitoneal pocket was fashioned to some degree. I had to perform a subcutaneous dissection outside the external oblique aponeurosis. I was able to deliver a large cord lipoma. This was excised. I elected to perform an orchiectomy as well, as the hernia defect was large. I was able to deliver the testicle. I then ligated the testicular artery and vein as well as the vas deferens highly with a 0 Vicryl suture. I then returned to the preperitoneal dissection. I was able to deliver the tied off stumps of the vas deferens as well as the remaining hernia sac and the testicular artery and vein. Intravenous methylene blue was given. There was no evidence of spillage of methylene blue and therefore, no evidence of a bladder injury. Two ovals of polypropylene mesh were then cut out of a larger sheath and sutured on top of one another with a 0 Surgidac suture. I placed the mesh in the preperitoneal space. Once I was satisfied with placement of the mesh, I closed the internal oblique and transversus abdominis muscle layers with multiple interrupted horizontal mattress 0 Surgidac incorporating a portion of the underlying mesh. The external oblique aponeurosis was then closed with running #1 Vicryls. Elpidio fascia was approximated with interrupted 3-0 Vicryls. The subdermis was OPERATIVE REPORT [id number] BONSHERLEY L approximated with interrupted 3-0 Vicryls. The skin was approximated with a running intracuticular 4-0 Vicryl. Benzoin and Steri-Strips were applied. The patient was then extubated and conveyed to post-anesthesia care unit where he was in stable condition. He will be dismissed home on an analgesic. I will see him in the office in 2-3 weeks. TRANSINT:[id number] Voice Confirmation ID: [id number] DOCUMENT ID: [id number] SURJIT LEE MD at 1840 CC: JATIN PAGE M.D., NAZARIO LEVY, NICHOLE LIRA MD and KATARINA,[id number] DICTATION DATE: 01/13/18 1340 PILOT BOAT OPERATOR: 01/13/18 1351 [facility] 01/13/18 [address] [place] [address]
[~2018-01-13 07:40] MED LIST changes: +AZELASTINE137 MCG/0. NASAL; +MUCINEX600 MG PO; +POTASSIUM99 M1; +PROAIR HFA ORAL INH; +SINGULAIR10 MG PO; +VYTORIN 10-40 M1 TAB PO
[2018-01-13 08:45] VITALS: BP 116/73; Ht 175.3 cm; Wt 86.2 kg
== END 2018-01-13 17:00 | disposition home or self-care (01) ==
LOC: D.OPS 07:40 → D.PAN 10:15 → D.OPS 10:15
PROVIDERS: Anesthesiology
DX: K40.30 Unilateral inguinal hernia, with obstruction, without gangrene, not specified as recurrent (principal); D17.6 Benign lipomatous neoplasm of spermatic cord; Z01.812 Encounter for preprocedural laboratory examination

== ENCOUNTER 2018-08-06 11:00 | Day surgery (SDC) | payer MEDICARE, BC ==
[2018-08-05 14:41] LABS: HEMATOCRIT 42.5 % (42.0-54.0); HEMOGLOBIN 13.6 g/dL (13.5-17.5); MEAN PLATELET VOLUME 9.4 fL (7.4-10.4); RBC 5.67 10x6/uL (4.20-6.10); RDW 14.7 % (11.5-14.5); WBC 10.1 10x3/uL (4.8-10.8)
[~2018-08-06] VITALS: Ht 175.3 cm; Wt 83.5 kg
[~2018-08-06 11:00] MED LIST changes: +ZETIA10 MG PO
[2018-08-06 14:05] VITALS: BP 115/66; Ht 175.3 cm; Wt 83.5 kg
[2018-08-06] MEDS ORDERED: ULTRAM50 MG PO (16:58)
[2018-08-06] MEDS ORDERED: DURICEF500 MG PO (17:11)
--- NOTE | 2018-08-06 18:43 | NUR ---
PATIENT AMBULATES TO BATHROOM WITHOUT DIZZINESS OR UNSTEADINESS, VOIDS LARGE AMOUNT IN TOILET. LEFT HAND PIV DC'D WITH TIP INTACT. THIS NURSE ASSISTS PATIENT TO DRESS IN PERSONAL CLOTHING LEAVING RIGHT ARM SLING IN PLACE
--- NOTE | 2018-08-06 18:55 | NUR ---
DISCHARGE INSTRUCTIONS REVIEWED WITH PATIENT AND SPOUSE, DISCHARGED HOME VIA WHEELCHAIR TO PRIVATE VEHICLE WITH SPOUSE
--- NOTE | 2018-08-07 07:35 | OP ---
PATIENT NAME: SHERLEY BOYER MEDICAL RECORD: [id number] :39 LOCATION:[facility] ADMISSION DATE: SURGEON: PAOLO ROJAS DO DATE OF OPERATION: 08/06/2018 PROCEDURE PERFORMED: Right olecranon bursectomy. PREOPERATIVE DIAGNOSIS: Right olecranon bursitis. POSTOPERATIVE DIAGNOSIS: Right olecranon bursitis. INDICATIONS: Mr. Boyer is a 77-year-old male who has had his right elbow aspirated several times and his bursa inflames and fills up with fluid. It had been sent for cultures and everything has been negative, but fills right back up. He started dealing with this and wanted it removed. I informed him of the risks and benefits of the procedure including infection, bleeding, damage to the ulnar nerve, radial nerve due to the proximity to the surgical site and need for further surgery and recurrence of the bursa inflammation. He was okay with that and signed the consent. SURGEON: Paolo Rojas DO DESCRIPTION OF PROCEDURE: The patient received a block by anesthesia preoperatively, taken to the operative suite, laid in supine position, given 2 grams Ancef preoperatively, given general anesthetic, and LMA was placed. The right upper extremity was then prepped and draped in sterile fashion. A timeout was performed. everyone was in agreement with the correct side, site, patient and procedure. The tourniquet had been placed under the drapes on the upper arm. The right upper extremity was elevated and tourniquet was inflated at that time. An incision then began over the olecranon bursa and curved radially. Once barely getting through the skin, the bursa ruptured as it was quite large and then, the bursa sac was removed quite delicately off the skin in the elbow. There was a large osteophyte on the olecranon and this was chewed off with a rongeur and bone wax was placed over. The ulnar nerve was noted and had very protected at the elbow just by the medial epicondyle and between that and the olecranon. Once the bone wax was placed, the tourniquet was let down and any bleeders were coagulated. The wound was then irrigated and closed with 3-0 Vicryl in an inverted interrupted fashion and 2-0 Vicryl in an inverted interrupted fashion. The ZipLine was placed on the skin for closure. Adaptic, 4 x 4s, ABD with cast padding and then a 4-inch Marc was placed on the patient from the hand up to above the elbow. He was awakened and taken to recovery in stable condition. Blood loss approximately 50 mL. COMPLICATIONS: None. TRANSINT:[id number] Voice Confirmation ID: [id number] DOCUMENT ID: [id number] OPERATIVE REPORT [id number] SHERLEY BOYER,PAOLO Jensen DO at 0735 CC: [id number] DICTATION DATE: 08/06/18 1703 OCCUPATIONAL HEALTH NURSE: 08/07/18 0406 [facility] 08/06/18 [address] [place] [address]
== END 2018-08-06 18:55 | disposition home or self-care (01) ==
LOC: D.OPS 11:00 → D.PAN 13:15 → D.OPS 13:15
PROVIDERS: Anesthesiology
DX: M70.21 Olecranon bursitis, right elbow (principal)

== ENCOUNTER 2018-09-08 11:41 | Outpatient (CLI) | payer MEDICARE, BC ==
[~2018-09-08] VITALS: Ht 172.7 cm; Wt 90.0 kg
--- NOTE | ~2018-09-08 | HEMODYNAMI ---
PATIENT:SHERLEY CROCKETT MEDICAL RECORD: [id number] : 38 LOCATION:[facility] ADMISSION DATE: 09/08/18 Generatedon:09/08/201815:51 Patient name: SHERLEY CROCKETT Patient #: [id number] SSN: : 1940 Date of study: 09/08/2018 Page: Of Hemodynamic Procedure Report Patient Data Patient Demographics Procedure consent was obtained First Name: SHERLEY Gender: Male Last Name: BON : 1940 Middle Initial: ANIKET Age: 78 year(s) Patient #: [id number] Race: Unknown Additional ID: [id number] Contact details [address]: [address] [place] [address] State: [place] City: [place] Zip code: [address] Admission Admission Data Admission Date: 09/08/2018 Admission Time: 11:41 Admit Source: Other Weight (lbs.): 198.42 Weight (kg.): 90 Lab Results Lab Result Date: 09/08/2018 Lab Result Time: 12:15 Biochemistry Name Units Result Min Max BUN mg/dl 16 --(---*)-- 7 18 Creatinine mg/dl 0.9 --(-*--)-- 0.6 1.3 CBC Name Units Result Min Max Hematocrit % 41.9 -*(----)-- 42 54 Hemoglobin g/dl 13.4 -*(----)-- 13.5 17.5 Procedure Procedure Types Cath Procedure Diagnostic Procedure LHC LHC w/Coronaries w/Grafts Procedure Description Procedure Date Procedure Date: 09/08/2018 Procedure Start Time: 14:27 Procedure Staff Name Function Abner Godwin MD Performing Physician Jose Damon RT Monitor Papito Lira RT Scrub Karma Tong RN Nurse Chris Munroe RT Regulatory Services Consultant Procedure Data Cath Procedure Fluoroscopy Diagnostic fluoroscopy Total fluoroscopy Time: time: 15.4 min 15.4 min Diagnostic fluoroscopy Total fluoroscopy dose: dose: 1104.35 mGy 1104.35 mGy Contrast Material Contrast Material Type Amount (ml) Isovue 300 201 Entry Location Entry Primary Successful Side Size Upsize Upsize Entry Closure Lopez ccessful Closure Location (Fr) 1 (Fr) 2 (Fr) Remarks Device Remarks Femoral Right 5 Fr 6 Fr Exoseal artery Short Femoral Left 5 Fr 6 Fr Manual artery Short Compression Estimated blood loss: 10 ml Diagnostic catheters Device Type Used For End Catheter Placement DIAGNOSTIC Pigtail 5Fr Procedure catheter ([id number]) DIAGNOSTIC JL 4.0 5Fr Procedure catheter ([id number]) DIAGNOSTIC AR MOD 5Fr Procedure Catheter (729503Y) DIAGNOSTIC IM 5Fr Procedure catheter (353725T) DIAGNOSTIC AR2 MOD 5 Fr Procedure catheter (620353J) Procedure Complications No complications Procedure Medications Medication Administration Route Dosage Oxygen etCO2 Nasal cannula 2 l/min Lidocaine 2% added to field 20 Heparin Flush Bag added to field 2 bags (1000units/500ml NS) 0.9% NaCl I.V. 100 ml/hr Versed I.V. 1 mg Fentanyl I.V. 50 mcg Versed I.V. 1 mg Fentanyl I.V. 50 mcg Heparin Bolus I.V. 9000 units Versed I.V. 1 mg Versed I.V. 1 mg Hemodynamics Rest HGB: 13.4 (g/dl) Heart Rate: 60 (bpm) Pressure Samples Time Site Value (mmHg) Purpose Heart Use Rate(bpm) 14:45 AO 116/61(84) Snapshot 70 14:47 LV 121/4,13 Snapshot 69 14:48 AO 123/61(87) Pullback 70 14:48 LV 121/4,13 Pullback 70 14:53 AO 109/59(80) Snapshot 62 Gradients Valve Time Site 1 Site 2 Mean SEP/DFP Peak To Heart Use (mmHg) (sec/min) Peak Rate (mmHg) (bpm) Aortic 14:48 LV AO 0 19 0 70 121/4,13 123/61(87) Calculations Valve P-P Mean Valve Index Valve Source Name Gradient Area Flow (cm2) Aortic 0 0 0 0 Snapshots Pre Cath Intra NCS Post Cath Vital Signs Time Heart Resp SPO2 etCO2 NIBP (mmHg) Rhythm Pain Sedation Rate (ipm) (%) (mmHg) Status Level (bpm) 14:20:52 68 15 96 0 129/72(91) Paced 0 (11) 10(A) , No pain 14:25:02 68 41 94 0 132/76(107) Paced 0 (11) 10(A) , No pain 14:29:13 71 19 98 0 122/80(97) Paced 0 (11) 9(A) , No pain 14:33:25 71 15 98 0 120/75(96) Paced 0 (11) 9(A) , No pain 14:37:39 69 11 99 0 121/71(97) Paced 0 (11) 9(A) , No pain 14:41:53 69 24 99 0 127/74(99) Paced 0 (11) 9(A) , No pain 14:46:11 68 12 99 0 120/70(87) Paced 0 (11) 9(A) , No pain 14:50:25 71 13 99 0 123/74(91) Paced 0 (11) 9(A) , No pain 14:54:41 71 12 99 0 117/73(99) Paced 0 (11) 9(A) , No pain 14:58:51 70 12 99 0 122/75(89) Paced 0 (11) 9(A) , No pain 15:03:03 68 11 99 0 120/75(100) Paced 0 (11) 9(A) , No pain 15:07:17 70 12 99 0 126/72(91) Paced 0 (11) 9(A) , No pain 15:11:31 73 13 99 0 129/74(105) Paced 0 (11) 9(A) , No pain 15:15:43 72 12 98 0 124/81(106) Paced 0 (11) 9(A) , No pain 15:19:59 71 14 99 0 140/75(103) Paced 0 (11) 9(A) , No pain 15:24:13 70 20 97 0 125/77(105) Paced 0 (11) 9(A) , No pain 15:28:25 71 13 97 0 127/76(106) Paced 0 (11) 10(A) , No pain 15:32:37 69 13 98 0 126/81(95) Paced 0 (11) 10(A) , No pain 15:36:53 71 15 99 0 131/77(108) Paced 0 (11) 10(A) , No pain 15:41:09 82 12 100 0 132/76(109) Paced 0 (11) 10(A) , No pain 15:45:15 100 0 136/80(89) Paced 0 (11) 10(A) , No pain 15:49:15 0 No Cuff Paced 0 (11) 10(A) , No pain Medications Time Medication Route Dose Verified Delivered Reason Notes Effectiveness by by 14:21:02 Oxygen etCO2 2 Abner Buffie used for Nasal l/min Nickolas Tong RN procedure cannula 14:21:18 Lidocaine 2% added 20ml Abner Abner for local to vial Nickolas Godwin MD anesthetic field 14:21:25 Heparin Flush added 2 Abner Buffie used for Bag to bags Nickolas Tong RN procedure (1000units/500ml field NS) 14:21:35 0.9% NaCl I.V. 100 Abner Buffie Per physician ml/hr Nickolas Tong RN 14:25:09 Versed I.V. 1 mg Abner Buffie for sedation Nickolas Tong RN 14:25:15 Fentanyl I.V. 50 Abner Buffie for sedation mcg Nickolas Tong RN 14:30:24 Versed I.V. 1 mg Abner Buffie for sedation Nickolas Tong RN 14:30:28 Fentanyl I.V. 50 Abner Buffie for sedation mcg Nickolas Tong RN 15:08:15 Heparin Bolus I.V. 9000 Abner Buffie for verif ied units Nickolas Tong RN anticoagulation with dr godwin 15:17:17 Versed I.V. 1 mg Abner Buffie for sedation Nickolas Tong RN 15:23:22 Versed I.V. 1 mg Abner Buffie for sedation Nickolas Tong RN Procedure Log Time Note 13:59:23 Informed consent obtained and on chart 13:59:27 Admit Source: Other 13:59:45 Diagnostic Cath status Elective 13:59:47 Chris Munroe RT(R) sent for patient. Start room use. 13:59:49 Time tracking: Regular hours (M-F 7:00 - 5:00) 13:59:52 Plan of Care:Hemodynamics will remain stable., Cardiac rhythm will remain stable., Comfort level will be maintained., Respiratory function will remain adequate., Patient/ family verbilizes understanding of procedure., Procedure tolerated without complication., Recovers from procedure without complications.. 14:01: Lab Result : Creatinine 0.9 mg/dl 14:: Lab Result : BUN 16 mg/dl 14: Lab Result : Hematocrit 41.9 % 14:: Lab Result : Hemoglobin 13.4 g/dl 14:01:41 Patient Weight : 198.42 lbs 14:02:21 H&P Date Dictated: 09/06/2018 Within 30 days and on chart., H&P Addendum completed by physician on day of procedure. (MUST COMPLETE FOR ALL OUTPATIENTS). 14:02:26 Lab results completed and on chart. 14:04:34 Patient received from Pre/Post Procedure Room to CCL 3 Alert and oriented. Tansferred to table in Supine position. 14:04:35 Warm blankets applied, and adriano hugger turned on for patient comfort. 14:04:36 Correct patient and procedure confirmed by team. 14:04:36 ECG and BP/O2 sat monitors applied to patient. 14:04:37 Pre-procedure instructions explained to patient. 14:04:37 Pre-op teaching completed and patient verbalized understanding. 14:04:38 Family in waiting room. 14:04:39 Patient NPO since Breakfast. 14:19:46 Vital chart was started 14:21:02 Oxygen 2 l/min etCO2 Nasal cannula was administered by Karma Tong RN; used for procedure; 14:21:03 Baseline sample Acquired. 14:21:06 Rhythm: paced 14:21:08 Full Disclosure recording started 14:21:11 Is the patient allergic to Iodine/contrast media? No. 14:21:12 Is patient on blood thinner?No 14:21:14 Patient diabetic? No. 14:21:16 Previous problem with sedation/anesthesia? No ? 14:21:17 Snore? Yes 14:21:18 Lidocaine 2% 20ml vial added to field was administered by Abner Godwin MD; for local anesthetic; 14:21:18 Sleep apnea? Yes 14:21:19 Deviated septum? No 14:21:20 Opens mouth fully? Yes 14:21:20 Sticks out tongue? Yes 14:21:25 Heparin Flush Bag (1000units/500ml NS) 2 bags added to field was administered by Karma Tong RN; used for procedure; 14:21:25 Airway obstruction? Yes Bronchitis 14:21:28 Dentures? No ? 14:21:32 Pre procedure: right dorsailis pedis pulse 1+ Palpable, but thready & weak; easily obliterated 14:21:33 Patient pain scale 0/10 ?. 14:21:35 0.9% NaCl 100 ml/hr I.V. was administered by Karma Tong RN; Per physician; 14:21:37 Right groin area was prepped with chlora-prep and draped in sterile fashion 14:21:38 Alarms reviewed by R. N. 14:21:38 Sharps counted by scrub and verified by R.N. 14:21:42 Use device set Femoral Dx 14:21:43 Tegaderm 4 x 4 (1626W) opened to sterile field. 14:21:45 ACIST Hand Control (36753) opened to sterile field. 14:21:45 ACIST Manifold (39035) opened to sterile field. 14:21:47 ACIST Syringe (29073) opened to sterile field. 14:21:47 Bag Decanter (2002S) opened to sterile field. 14:21:47 Medline Cath Pack ([id number]) opened to sterile field. 14:21:49 DIAGNOSTIC WIRE .035 260cm J wire (094383) opened to sterile field. 14:21:51 SHEATH 5FR [place] (VRM060) opened to sterile field. 14:24:23 --------ALL STOP TIME OUT------ 14:24:24 Final Timeout: patient, procedure, and site verified with staff and physician. All members of the team are in agreement. 14:24:26 Right groin site verified by team. 14:24:32 Maximum allowable Isovue 300 dose 85ml. Physician notified. (300ml for normal creatinines. For patients with creatinine of 1.7 or higher multiply weight x 5 divided by creatinine.) 14:24:42 Fire Safety Assessment: A--An alcohol-based skin anteseptic being used preoperatively., C--Open oxygen or nitrous oxide is being used., D--An ESU, laser, or fiber-optic light is being used. 14:24:48 Physical assessment completed. ASA score P 2 - A patient with mild systemic disease as per Abner Godwin MD. 14:24:52 Sedation plan: IV Moderate Sedation Medication:Versed, Fentanyl 14:25:09 Versed 1 mg I.V. was administered by Karma Tong RN; for sedation; 14:25:15 Fentanyl 50 mcg I.V. was administered by Karma Tong RN; for sedation; 14:27:07 Procedure started. 14:27:10 Local anesthetic to right femoral artery with Lidocaine 2% by Abner Godwin MD.INITIAL ACCESS ONLY 14:29:54 A 5 Fr sheath was inserted into the Right Femoral artery 14:30:24 Versed 1 mg I.V. was administered by Karma Tong RN; for sedation; 14:30:28 Fentanyl 50 mcg I.V. was administered by Karma Tong RN; for sedation; 14:31:43 WHOLEY 300cm 0.035 wire ([id number]) opened to sterile field. 14:32:02 Wholey wire advanced. 14:32:25 Unable to advance, wire removed. 14:32:26 MAGIC TORQUE 180cm 0.035 wire ([id number]) opened to sterile field. 14:32:54 Magic Torque wire advanced. 14:35:45 Unable to advance, wire removed. 14:36:23 SHEATH 5FR [place] (ISV337) opened to sterile field. 14:36:34 Local anesthetic to left femerol artery with Lidocaine 2% by Abner Godwin MD.ADDITIONAL ACCESS 14:42:01 A 5 Fr sheath was inserted into the Left Femoral artery 14:43:43 A DIAGNOSTIC Pigtail 5Fr catheter ([id number]) was advanced over the wire and used for Procedure. 14:47:09 Right leg runoff performed. 14:47:55 LV angiography performed. 14:47:56 LV gram done using STONE 14:48:34 EF : 45 % 14:48:35 LV hemodynamics recorded. 14:48:39 Injector settings: Ml/sec: 10, Volume: 20, 14:48:41 Catheter exchanged over wire. 14:49:43 A DIAGNOSTIC JL 4.0 5Fr catheter (228244F) was advanced over the wire and used for Procedure. 14:51:01 LCA angiography performed. 14:51:32 Catheter exchanged over wire. 14:52:14 A DIAGNOSTIC AR MOD 5Fr Catheter (343879Q) was advanced over the wire and used for Procedure. 14:53:14 RCA angiography performed. 14:55:01 SVG to Diag angiography performed. 14:55:36 Skip graft to OM. 14:55:41 Catheter exchanged over wire. 14:55:46 A DIAGNOSTIC IM 5Fr catheter ([id number]) was advanced over the wire and used for Procedure. 14:56:55 BURCH closed. 14:56:57 Catheter exchanged over wire. 14:57:15 A DIAGNOSTIC AR2 MOD 5 Fr catheter ([id number]) was advanced over the wire and used for Procedure. 14:59:38 SVG to RCA angiography performed. 15:04:23 Catheter exchanged over wire. 15:04:28 Use device set GODWIN PCI 15:05:37 Sheath upsized to a 6 Fr Short. 15:05:53 SHEATH 6FR [place] (QWX063) opened to sterile field. 15:06:03 INFLATOR Merit BasixCompak (RR3104) opened to sterile field. 15:06:04 TUBING High Pressure Extension Tubing (Godwin) (DI1086G) opened to sterile field. 15:06:09 GUIDE 6FR AR 2.0 catheter (HU0LO43) opened to sterile field. 15:06:55 BMW 300cm Hunt 2 J wire ([id number]) opened to sterile field. 15:08:04 6 Fr AR 2 guide catheter was inserted over the wire 15:08:15 Heparin Bolus 9000 units I.V. was administered by Karma Tong RN; for anticoagulation; verified with dr godwin 15:12:13 BMW wire advanced. 15:12:43 Wire advanced across lesion. 15:17:17 Versed 1 mg I.V. was administered by Karma Tong RN; for sedation; 15:17:48 The IRLANDA OTW 4.0 x 26 stent ([id number]) was advanced then removed because of failure to cross lesion 15:17:57 Wire removed. 15:18:02 Guide Catheter removed. unable to get back-up support 15:18:18 GUIDE 6FR AL 2.0 catheter (WW3DD22) opened to sterile field. 15:18:58 6 Fr AL 2 guide catheter was inserted over the wire 15:19:05 BMW wire advanced. 15:23:22 Versed 1 mg I.V. was administered by Karma Tong RN; for sedation; 15:23:39 Wire removed. 15:24:10 Guide Catheter removed. unable to get back-up support 15:24:16 EXOSEAL 6Fr (EX600) opened to sterile field. 15:40:10 Sheath upsized to a 6 Fr Short. 15:40:10 Sheath removed intact; hemostasis achieved with Exoseal to the Right Femoral artery. 15:40:19 Sheath removed intact; hemostasis achieved with Manual Compression to the Left Femoral artery. 15:40:21 Procedure ended.(Physican Out) 15:41:37 Fluoroscopy time 15.40 minutes. 15:41:44 Flurop Dose total: 1104.35 15:41:44 Fluoroscopy dose: 1104.35 mGy 15:44:47 Contrast amount:Isovue 300 201ml. 15:44:49 Sharps counted by scrub and verified by R.N. 15:44:50 Insertion/operative site no bleeding no hematoma. 15:44:53 Post-op/insertion site Right Femoral artery dressed using a 4 x 4 and Tegaderm. 15:44:56 Post-op/insertion site Left Femoral artery dressed using a 4 x 4 and Tegaderm. 15:44:58 Post Procedure Pulses reassessed and unchanged 15:45:01 Post-procedure physical assessment completed. ASA score P 2 - A patient with mild systemic disease as per Abner Godwin MD. 15:45:03 Post procedure rhythm: sinus rhythm 15:45:07 Estimated blood loss: 10 ml 15:45:09 Post procedure instruction explained to patient.Patient verbalizes understanding. 15:45:10 Patient needs reinforcement of post procedure teaching. 15:46:27 Procedure type changed to Cath procedure, Diagnostic procedure, LHC, LHC w/Coronaries w/Grafts 15:49:50 Procedure and supply charges have been captured, reviewed, submitted and are correct. 15:49:53 Procedure Complication : No complications 15:49:55 Vital chart was stopped 15:49:56 See physician's report for complete and final results. 15:49:58 Report given to Pre/Post Procedure Room. 15:50:00 Patient transfered to Pre/Post Procedure Room with Stretcher. 15:50:03 End room use (Document Last) Intervention Summary Intervention Notes Time ActionType Lesion and Equipment Action# Pressure Duration Attributes Used 15:17:48 Discard IRLANDA OTW 4.0 Stent x 26 stent ([id number]) Device Usage Item Name Manufacture Quantity Catalog Hospital Part Current Mini mal Lot# / Number Charge Number Stock Stock Serial# Code Tegaderm 4 x 3M 1 1626W [id number] 600626 167720 5 4 (1626W) ACIST Hand Acist 1 96316 969910 369482 150652 5 Control Medical (53635) Systems Inc ACIST Acist 1 28430 516220 889085 899146 5 Manifold Medical (00722) Systems Inc ACIST Syringe Acist 1 72219 780440 510590 792616 20 (95718) Medical Systems Inc Bag Decanter Microtek 1 2001S 366180 63376 839011 5 (2001S) Medical Inc. Medline Cath Medline 1 [id number] 532399 51170 854338 5 Pack ([id number]) DIAGNOSTIC [place] 1 392300 284809 711328 212522 30 WIRE .035 260cm J wire (957805) SHEATH 5FR Terumo 2 FVC562 887410 901773 078322 5 [place] (DVY060) WHOLEY 300cm Medtronic 1 TSCY61492 992182 705210 084942 3 0.035 wire ([id number]) MAGIC TORQUE [place] 1 [id number] 703623 137164 252294 1 180cm 0.035 Scientific wire ([id number]) DIAGNOSTIC Cardinal 1 038399Y 772153 888710 465554 5 Pigtail 5Fr Health catheter (932451N) DIAGNOSTIC JL Cardinal 1 518427Y 686962 093073 590927 10 4.0 5Fr Health catheter (175799J) DIAGNOSTIC AR Cardinal 1 891737A 328891 960132 274011 15 MOD 5Fr Health Catheter (951652T) DIAGNOSTIC IM Cardinal 1 291686O 574410 682153 467400 5 5Fr catheter Health (264748U) DIAGNOSTIC Cardinal 1 553553V 229957 263483 878134 20 AR2 MOD 5 Fr Health catheter (158133Z) SHEATH 6FR Terumo 1 IPI052 166316 568081 900205 40 [place] (MZG069) INFLATOR Merit 1 NM9537 492620 807720 947526 15 [facility] Medical BasixCompak (TI9426) TUBING High Merit 1 QI9226U 125201 85553 339460 10 Pressure Medical Extension Tubing (Godwin) (VB9899S) GUIDE 6FR AR Medtronic 1 EO7XE18 119268 97412 764779 1 2.0 catheter (SV5XV43) BMW 300cm Dorsey 1 [id number] 964647 985519 868527 5 Hunt 2 J Vascular wire (9580222M) IRLANDA OTW 4.0 Medtronic 1 [id number] 516573 5726586 066467 5 [id number] x 26 stent ([id number]) GUIDE 6FR AL Medtronic 1 [id number] 202482 55280 820527 1 2.0 catheter (DR3UB84) EXOSEAL 6Fr Cardinal 1 EX600 083278 322610 756326 10 (EX600) Health Signature Audit [place] Stage Time Signature Unsigned Intra-Procedure 09/08/2018 Jose Damon 3:51:32 PM RT(R) Signatures Monitor : Jose Damon RT Signature : Date : Time : [address] [place] [address]
[~2018-09-08 11:41] MED LIST changes: +DURICEF500 MG PO; +ULTRAM50 MG PO
[2018-09-08] MEDS ORDERED: [UNRECOGNIZED DRUG - OTHER] PO (11:56)
[2018-09-08] MEDS ORDERED: EZETIMIBE PO (11:56)
[2018-09-08] MEDS ORDERED: CITRACAL + D E1 EACH PO (11:58)
[2018-09-08] MEDS ORDERED: FUROSEMIDE20 MG PO (11:59)
[2018-09-08] MEDS ORDERED: AMOXICILLIN875 MG PO (12:00)
[2018-09-08] MEDS ORDERED: RESTORIL15 MG PO (12:00)
[2018-09-08 12:20] VITALS: BP 137/65; Ht 172.7 cm; Wt 90.0 kg
[2018-09-08 12:29] LABS: BASOPHILS 0.1 % (0-2); EOSINOPHILS 0.6 % (0-7); HEMATOCRIT 41.9 % (42.0-54.0); HEMOGLOBIN 13.4 g/dL (13.5-17.5); IMMATURE GRANULOCYTES 0.2 % (0-5); LYMPHOCYTES 11.1 % (15-50); MCH 23.9 pg (26.0-34.0); MCV 74.7 fL (80.0-100.0); MEAN PLATELET VOLUME 9.3 fL (7.4-10.4); MONOCYTES 6.9 % (2-11); NEUTROPHILS 81.1 % (40-80); PLATELET COUNT 193 10x3/uL (130-400); RBC 5.61 10x6/uL (4.20-6.10); RDW 15.1 % (11.5-14.5); WBC 10.5 10x3/uL (4.8-10.8)
[2018-09-08 12:35] LABS: CALC OSMOLALITY 289 mosm/kg (275-300); CARBON DIOXIDE 29.3 mmol/L (21.0-32.0); CHLORIDE - SERUM 107 mmol/L (98-107); CREATININE - SERUM 0.9 mg/dL (0.6-1.3); SODIUM 145 mmol/L (136-145); UREA NITROGEN 16 mg/dL (7-18); eGFR NON AFRICAN AMERICAN 86 mL/min (90-120)
[2018-09-08 12:36] LABS: GLUCOSE 96 mg/dL (74-106)
--- NOTE | 2018-09-08 16:15 | NUR ---
LEFT GROIN DRESSING IS CDI, NO S/S OF BLEEDING OR HEMATOMA.
--- NOTE | 2018-09-08 16:15 | NUR ---
PATIENT AWAKE, FAMILY AND FRIENDS AT BEDSIDE. VSS ON 2L NC. RIGHT GROIN DRESSING IS CDI, NO S/S OF BLEEDING OR HEMATOMA. PATIENT DRINKING ORANGE JUICE, NO N/V.
--- NOTE | 2018-09-08 16:45 | NUR ---
PATIENT INTERMITTENTLY RESTING, FAMILY AT BEDSIDE. VSS ON ROOM AIR. DR. PAGE AT BEDSIDE TO UPDATE PATIENT AND FAMILY. RIGHT AND LEFT GROIN DRESSINGS ARE CDI, NO S/S OF BLEEDING OR HEMATOMA. NO C/O PAIN, NUMBNESS, OR TINGLING.
--- NOTE | 2018-09-08 17:15 | NUR ---
PATIENT RESTING, VSS ON ROOM AIR. RIGHT AND LEFT GROIN DRESSINGS ARE CDI, NO S/S OF BLEEDING OR HEMATOMA. 2+ PEDAL PULSES.
--- NOTE | 2018-09-08 17:45 | NUR ---
PATIENT RESTING, AT BEDSIDE. VSS ON ROOM AIR. RIGHT AND LEFT GROIN DRESSINGS ARE CDI, NO S/S OF BLEEDING OR HEMATOMA. NO C/O PAIN, NUMBNESS, OR TINGLING.
--- NOTE | 2018-09-08 18:15 | NUR ---
HEAD OF BED ELEVATED TO 30 DEGREES, LEFT AND RIGHT GROIN DRESSINGS ARE CDI, NO S/S OF BLEEDING OR HEMATOMA. PATIENT EATING SANDWICH AND DRINKING JUICE, NO N/V. NO C/O PAIN,NUMBNESS, OR TINGLING. VSS ON ROOM AIR.
--- NOTE | 2018-09-08 18:45 | NUR ---
PATIENT AWAKE, HEAD OF BED AT 90 DEGREES. LEFT AND RIGHT GROIN DRESSINGS ARE CDI, NO S/S OF BLEEDING OR HEMATOMA. NO C/O PAIN,NUMBNESS, OR TINGLING. 2+ PEDAL PULSES. IV REMOVED. EDUCATION REGARDING DISCHARGE INSTRUCTIONS AND MEDICATIONS GIVEN TO PATIENT AND SPOUSE, PATIENT VOICED UNDERSTANDING. VSS ON ROOM AIR.
--- NOTE | 2018-09-08 19:15 | NUR ---
PATIENT GETTING DRESSED. RIGHT AND LEFT GROIN DRESSINGS ARE CDI, NO S/S OF BLEEDING OR HEMATOMA. NO C/O PAIN, NUMBNESS, OR TINGLING.
--- NOTE | 2018-09-08 19:20 | NUR ---
PATIENT VOIDED WITHOUT DIFFICULTY. PATIENT TRANSPORTED VIA WHEELCHAIR TO CAR WITH SPOUSE DRIVING, ALL BELONGINGS WITH PATIENT.
== END 2018-09-08 19:20 ==
LOC: D.CATH 11:41
PROVIDERS: ATTEND Internal Medicine Cardiovascular Disease
DX: I25.119 Atherosclerotic heart disease of native coronary artery with unspecified angina pectoris (principal); I25.719 Atherosclerosis of autologous vein coronary artery bypass graft(s) with unspecified angina pectoris; Z01.812 Encounter for preprocedural laboratory examination

== ENCOUNTER 2018-09-22 06:50 | Outpatient (CLI) | payer MEDICARE, BC ==
[~2018-09-22] VITALS: Ht 172.7 cm; Wt 89.1 kg
--- NOTE | ~2018-09-22 | HEMODYNAMI ---
PATIENT:SHERLEY CROCKETT MEDICAL RECORD: [id number] : 38 LOCATION:[facility] ADMISSION DATE: 09/22/18 Generatedon:09/22/20189:55 Patient name: SHERLEY CROCKETT Patient #: [id number] SSN: : 1940 Date of study: 09/22/2018 Page: Of Hemodynamic Procedure Report Patient Data Patient Demographics Procedure consent was obtained First Name: SHERLEY Gender: Male Last Name: BON : 1940 [facility] Initial: ANIKET Age: 78 year(s) Patient #: [id number] Race: Unknown Additional ID: [id number] Contact details [address]: [address] [place] [address] State: [place] City: [place] Zip code: [address] Past Medical History Allergies Allergen Reaction Date Comments Reported Other allergy 09/22/2018 MORPHINE, MUCINEX D Admission Admission Data Admission Date: 09/22/2018 Admission Time: 6:50 Height (in.): 67.72 BSA: 2.05 (m2) Height (cm.): 172 BMI: 31.12 (kg/m2) Weight (lbs.): 203 Weight (kg.): 92.08 Lab Results Lab Result Date: 09/22/2018 Lab Result Time: 0:00 Biochemistry Name Units Result Min Max BUN mg/dl 20 --(----)*- 7 18 Creatinine mg/dl 0.8 --(-*--)-- 0.6 1.3 CBC Name Units Result Min Max Hematocrit % 43.5 --(*---)-- 42 54 Hemoglobin g/dl 13.8 --(*---)-- 13.5 17.5 Procedure Procedure Types Cath Procedure Diagnostic Procedure Sedation Charges Moderate Sedation up to 15 minutes PCI Procedure AMI/SVG/YARN SALVAGER PTCA or Stent SVG-BMS/[place] Initial Procedure Description Procedure Date Procedure Date: 09/22/2018 Procedure Start Time: 9:27 Procedure End Time: 9:51 Procedure Staff Name Function Abner Olmos MD Performing Physician Johana Díaz RT Monitor Karma Tong RN Nurse Jenn Chapin RT Scrub Procedure Data Cath Procedure Fluoroscopy Diagnostic fluoroscopy Total fluoroscopy Time: 5.3 time: 5.3 min min Diagnostic fluoroscopy Total fluoroscopy dose: 511 dose: 511 mGy mGy Contrast Material Contrast Material Type Amount (ml) Isovue 300 69 Entry Location Entry Primary Successful Side Size Upsize Upsize Entry Closure Succes sful Closure Location (Fr) 1 (Fr) 2 (Fr) Remarks Device Remarks Femoral Right 6 Fr Exoseal artery Long Estimated blood loss: 10 ml Procedure Complications No complications Procedure Medications Medication Administration Route Dosage Oxygen etCO2 Nasal cannula 2 l/min Lidocaine 2% added to field 20 Heparin Flush Bag added to field 2 bags (1000units/500ml NS) 0.9% NaCl I.V. 100 ml/hr Versed I.V. 1 mg Fentanyl I.V. 50 mcg Versed I.V. 1 mg Fentanyl I.V. 50 mcg Heparin Bolus I.V. 9000 units Nitroglycerin IC/IA I.C. 100 mcg Plavix P.O. 600 mg Hemodynamics Rest BSA: 2.05 (m2) HGB: 13.8 (g/dl) O2 Consumption: Estimated: 235.11 (ml/min) O2 Co nsumption indexed: Estimated:114.69 (ml/min/m) Heart Rate: 71 (bpm) Snapshots Pre Cath Intra NCS Post Cath Vital Signs Time Heart Resp SPO2 etCO2 NIBP (mmHg) Rhythm Pain Sedation Rate (ipm) (%) (mmHg) Status Level (bpm) 9:11:31 72 14 95 0 132/69(94) NSR 0 (11) 10(A) , No pain 9:15:49 70 17 98 32.4 126/70(101) NSR 0 (11) 10(A) , No pain 9:19:59 69 15 96 33.2 128/80(94) NSR 0 (11) 10(A) , No pain 9:24:09 69 14 94 24.1 127/71(103) NSR 0 (11) 10(A) , No pain 9:28:20 69 13 97 12.8 115/73(96) NSR 0 (11) 9(A) , No pain 9:32:35 70 16 95 12 117/65(93) NSR 0 (11) 9(A) , No pain 9:36:49 69 12 96 10.5 114/67(94) NSR 0 (11) 9(A) , No pain 9:40:58 69 26 94 17.3 119/74(98) NSR 0 (11) 9(A) , No pain 9:45:08 69 16 93 23.4 112/71(93) NSR 0 (11) 9(A) , No pain 9:49:20 70 13 95 18.1 110/68(84) NSR 0 (11) 10(A) , No pain Medications Time Medication Route Dose Verified Delivered Reason Notes Effectiveness by by 9:16:17 Oxygen etCO2 2 Abner Buffie used for Nasal l/min Nickolas Tong RN procedure cannula 9:16:27 Lidocaine 2% added 20ml Abner Abner for local to vial Nickolas Olmos MD anesthetic field 9:16:35 Heparin Flush added 2 Abner Abner used for Bag to bags Nickolas Olmos MD procedure (1000units/500ml field NS) 9:16:44 0.9% NaCl I.V. 100 Abner Buffie Per physician ml/hr Nickolas Tong RN 9:22:42 Versed I.V. 1 mg Abner Buffie for sedation Nickolas Tong RN 9:22:47 Fentanyl I.V. 50 Abner Buffie for sedation mcg Nickolas Tong RN 9:27:04 Versed I.V. 1 mg Abner Buffie for sedation Nickolas Tong RN 9:27:08 Fentanyl I.V. 50 Abner Buffie for sedation mcg Nickolas Tong RN 9:34:01 Heparin Bolus I.V. 9,000 Abner Buffie for verifi ed units Nickolas Tong RN anticoagulation with dr olmos 9:43:43 Nitroglycerin I.C. 100 Abner Abner for IC/IA mcg Nickolas Olmos MD vasodilation 9:50:28 Plavix P.O. 600 Abner Buffie for mg Nickolas Tong RN antiplatelet therapy Procedure Log Time Note 8:54:17 Time tracking: Regular hours (M-F 7:00 - 5:00) 8:54:22 Plan of Care:Hemodynamics will remain stable., Cardiac rhythm will remain stable., Comfort level will be maintained., Respiratory function will remain adequate., Patient/ family verbilizes understanding of procedure., Procedure tolerated without complication., Recovers from procedure without complications.. 8:54:23 Signed procedure consent form obtained from patient. 8:54:56 Patient allergic to Other allergyMORPHINE, MUCINEX D 8:55:05 Patient Height : 67.72 inches 8:55:09 Patient Weight : 203 lbs 8:56:44 Lab Result : Creatinine 0.8 mg/dl 8:56:44 Lab Result : BUN 20 mg/dl 8:56:44 Lab Result : Hemoglobin 13.8 g/dl 8:56:44 Lab Result : Hematocrit 43.5 % 8:58:11 Jenn Counts RT(R) sent for patient. Start room use. 9:06:50 Patient received from Pre/Post Procedure Room to CCL 1 Alert and oriented. Tansferred to table in Supine position. 9:06:51 Warm blankets applied, and adriano hugger turned on for patient comfort. 9:06:52 Correct patient and procedure confirmed by team. 9:06:53 ECG and BP/O2 sat monitors applied to patient. 9:10:18 Vital chart was started 9:15:14 Baseline sample Acquired. 9:15:23 Baseline sample Acquired. 9:15:32 Rhythm: sinus rhythm , paced 9:15:36 Full Disclosure recording started 9:15:52 H&P Date Dictated: 09/22/2018 Within 30 days and on chart., H&P Addendum completed by physician on day of procedure. (MUST COMPLETE FOR ALL OUTPATIENTS). 9:15:53 Pre-procedure instructions explained to patient. 9:15:54 Pre-op teaching completed and patient verbalized understanding. 9:15:58 Family in patients room. 9:15:59 Patient NPO since Midnight. 9:16:02 Is patient on blood thinner?No 9:16:03 Patient diabetic? No. 9:16:14 Previous problem with sedation/anesthesia? No ? 9:16:15 Snore? Yes 9:16:16 Sleep apnea? Yes 9:16:17 Oxygen 2 l/min etCO2 Nasal cannula was administered by Karma Tong RN; used for procedure; 9:16:17 Deviated septum? No 9:16:18 Opens mouth fully? Yes 9:16:19 Sticks out tongue? Yes 9:16:20 Airway obstruction? No ? 9:16:22 Dentures? No ? 9:16:26 Pre procedure: right dorsailis pedis pulse 1+ Palpable, but thready & weak; easily obliterated 9:16:27 Lidocaine 2% 20ml vial added to field was administered by Abner Olmos MD; for local anesthetic; 9:16:35 Heparin Flush Bag (1000units/500ml NS) 2 bags added to field was administered by Abner Olmos MD; used for procedure; 9:16:36 IV patent on arrival in left hand with 0.9% NaCl at [facility]. 9:16:44 0.9% NaCl 100 ml/hr I.V. was administered by Karma Tong RN; Per physician; 9:16:44 Lab results completed and on chart. 9:16:47 Right groin area was prepped with chlora-prep and draped in sterile fashion 9:16:48 Alarms reviewed by R. N. 9:16:49 Sharps counted by scrub and verified by R.N. 9:16:53 Use device set CATH PACK 9:16:54 ACIST Syringe (56360) opened to sterile field. 9:16:54 ACIST Hand Control (45204) opened to sterile field. 9:16:54 ACIST Manifold (54487) opened to sterile field. 9:16:54 Medline Cath Pack ([id number]) opened to sterile field. 9:16:55 Bag Decanter (2002) opened to sterile field. 9:16:55 DIAGNOSTIC WIRE .035 260cm J wire (251799) opened to sterile field. 9:17:32 BMW 300cm Straight [place] 2 wire ([id number]) opened to sterile field. 9:17:33 INFLATOR Merit BasixCompak (ZB1427) opened to sterile field. 9:17:33 SHEATH 6FR Steele (JYL350) opened to sterile field. 9:17:33 SHEATH 6FR Destination (RSR01) opened to sterile field. 9:20:28 --------ALL STOP TIME OUT------ 9:20:28 Final Timeout: patient, procedure, and site verified with staff and physician. All members of the team are in agreement. 9:20:30 Right groin site verified by team. 9:20:34 Maximum allowable Isovue 300 dose 300ml. Physician notified. (300ml for normal creatinines. For patients with creatinine of 1.7 or higher multiply weight(kg) x 5 divided by creatinine.) 9:20:37 Fire Safety Assessment: A--An alcohol-based skin anteseptic being used preoperatively., C--Open oxygen or nitrous oxide is being used., D--An ESU, laser, or fiber-optic light is being used. 9:20:41 Physical assessment completed. ASA score P 2 - A patient with mild systemic disease as per Abner Olmos MD. 9:20:44 Sedation plan: IV Moderate Sedation Medication:Versed, Fentanyl 9::38 TUBING High Pressure Extension Tubing (Nickolas) ([id number]) opened to sterile field. 9:22:39 GUIDE 6FR MB 2 SH catheter ([id number]) opened to sterile field. 9::42 Versed 1 mg I.V. was administered by Karma Tong RN; for sedation; 9::47 Fentanyl 50 mcg I.V. was administered by Karma Tong RN; for sedation; 9:25:28 Zero performed for pressure channel P1 9:25:42 Procedure started. 9:27:04 Versed 1 mg I.V. was administered by Karma Tong RN; for sedation; 9:27:08 Fentanyl 50 mcg I.V. 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 was administered by Karma Tong RN; for anticoagulation; verified with dr olmos 9:34:47 BMW 300 wire advanced. 9:34:56 Wire advanced across lesion. 9:41:28 Place stent Inflation Number: 1 A IRLANDA OTW 3.5 x 26 stent ([id number]) was prepped and advanced across the Aorta Right -> Prox RCA. The stent was deployed at 12 ELISEO for 0:16 (min:sec). 9:41:36 Stent catheter was removed intact over wire. 9:43:43 Nitroglycerin IC/IA 100 mcg I.C. was administered by Abner Olmos MD; for vasodilation; 9:45:46 Wire removed. 9:45:47 Guide catheter removed. 9:46:14 LONG SHEATH EXCHANGED FOR SHORT SHEATH 9:46:20 EXOSEAL 6Fr (EX600) opened to sterile field. 9:48:45 Sheath removed intact; hemostasis achieved with Exoseal to the Right Femoral artery. 9:48:46 Procedure ended.(Physican Out) 9:49:01 Fluoroscopy time 05.30 minutes. 9:49:05 Flurop Dose total: 511 9:49:05 Fluoroscopy dose: 511 mGy 9:49:33 Contrast amount:Isovue 300 69ml. 9:49:35 Sharps counted by scrub and verified by R.N. 9:49:38 Post-op/insertion site Right Femoral artery dressed using a 4 x 4 and Tegaderm. 9:49:40 Post-procedure physical assessment completed. ASA score P 2 - A patient with mild systemic disease as per Abner Olmos MD. 9:49:45 Post procedure rhythm: unchanged. 9:49:48 Estimated blood loss: 10 ml 9:49:50 Post procedure instruction explained to patient.Patient verbalizes understanding. 9:49:50 Patient needs reinforcement of post procedure teaching. 9:50:24 Procedure type changed to Cath procedure, Diagnostic procedure, Sedation Charges, Moderate Sedation up to 15 minutes, PCI procedure, AMI/SVG/YARN SALVAGER PTCA or Stent, SVG-BMS/[place] Initial 9:50:28 Plavix 600 mg P.O. was administered by Karma Tong RN; for antiplatelet therapy; 9:51:31 Procedure and supply charges have been captured, reviewed, submitted and are correct. 9:51:33 Procedure Complication : No complications 9:51:35 Vital chart was stopped 9:51:36 See physician's report for complete and final results. 9:51:37 Report given to Pre/Post Procedure Room. 9:51:39 Patient transfered to Pre/Post Procedure Room with Bed. 9:51:41 Procedure ended. 9:51:41 Full Disclosure recording stopped 9:51:46 End room use (Document Last) Intervention Summary Intervention Notes Time ActionType Lesion and Equipment Action# Pressure Duration Attributes Used 9:41:28 Place stent Aorta Right IRLANDA OTW 3.5 1 12 00:16 -> Prox RCA x 26 stent ([id number]) Device Usage Item Name Manufacture Quantity Catalog Hospital Part Current Mini mal Lot# / Number Charge Number Stock Stock Serial# Code ACIST Syringe Acist 1 08646 326696 409157 746014 20 (00931) Medical Systems Inc ACIST Hand Acist 1 42630 292280 480509 862028 5 Control Medical (54703) Systems Inc ACIST Acist 1 26884 844455 334015 075780 5 Manifold Medical (25276) Systems Inc Medline Cath Medline 1 [id number] 655180 62706 310671 5 Pack ([id number]) Bag Decanter Microtek 1 2001S 777804 38445 347102 5 (2001S) Medical Inc. DIAGNOSTIC St Alex 1 759711 333504 305722 464608 30 WIRE .035 260cm J wire (949136) BMW 300cm Dorsey 1 0215203 030640 167193 743062 5 Straight Vascular [place] 2 wire (4610461) INFLATOR Merit 1 ZF9241 223995 107647 767852 15 Merit Medical BasixCompak (EU7294) SHEATH 6FR Terumo 1 MQR865 094125 543743 524466 40 Steele (UQT426) SHEATH 6FR Terumo 1 RSR01 365031 88997 381784 5 Destination (RSR01) TUBING High Merit 1 [id number] 665894 74009 740280 10 Pressure Medical Extension Tubing (Olmos) ([id number]) GUIDE 6FR MB Medtronic 1 [id number] 613257 99015 158958 1 2 SH catheter ([id number]) IRLANDA OTW 3.5 Medtronic 1 [id number] 850837 3272103 828325 5 [id number] x 26 stent ([id number]) EXOSEAL 6Fr Cardinal 1 EX600 028410 751884 519613 10 (EX600) Health Signature Audit Aurelia Stage Time Signature Unsigned Intra-Procedure 09/22/2018 Johana Díaz 9:55:46 AM RT(R) Signatures Monitor : Johana Díaz Signature : RT Date : Time : [address] [place] [address]
[~2018-09-22 06:50] MED LIST changes: +AMOXICILLIN875 MG PO; +CITRACAL + D E1 EACH PO; +EZETIMIBE PO; +FUROSEMIDE20 MG PO; +RESTORIL15 MG PO; +[UNRECOGNIZED DRUG - OTHER] PO
[2018-09-22] MEDS ORDERED: SYSTANE NIGHTT3.5 GM EACH EYE (07:14)
[2018-09-22 07:37] VITALS: BP 120/64; Ht 172.7 cm; Wt 89.1 kg
[2018-09-22 07:41] LABS: BASOPHILS 0.5 % (0-2); EOSINOPHILS 5.5 % (0-7); HEMATOCRIT 43.5 % (42.0-54.0); HEMOGLOBIN 13.8 g/dL (13.5-17.5); IMMATURE GRANULOCYTES 0.3 % (0-5); LYMPHOCYTES 34.4 % (15-50); MCH 23.8 pg (26.0-34.0); MCHC 31.7 g/dL (31.0-37.0); MCV 75.1 fL (80.0-100.0); MEAN PLATELET VOLUME 9.3 fL (7.4-10.4); MONOCYTES 9.2 % (2-11); NEUTROPHILS 50.1 % (40-80); PLATELET COUNT 184 10x3/uL (130-400); RBC 5.79 10x6/uL (4.20-6.10); RDW 14.7 % (11.5-14.5); WBC 7.9 10x3/uL (4.8-10.8)
[2018-09-22 08:06] LABS: CALC OSMOLALITY 288 mosm/kg (275-300); CALCIUM 8.9 mg/dL (8.5-10.1); CARBON DIOXIDE 29.7 mmol/L (21.0-32.0); CHLORIDE - SERUM 106 mmol/L (98-107); CREATININE - SERUM 0.8 mg/dL (0.6-1.3); GLUCOSE 112 mg/dL (74-106); POTASSIUM - SERUM 3.9 mmol/L (3.5-5.1); SODIUM 143 mmol/L (136-145); UREA NITROGEN 20 mg/dL (7-18); eGFR NON AFRICAN AMERICAN > 90 mL/min (90-120)
[2018-09-22] MEDS ORDERED: PLAVIX75 MG PO (10:06)
--- NOTE | 2018-09-22 10:10 | NUR ---
RECIEVED TO ROOM VIA STRETCHER FROM AXLE AND FRAME MECHANIC WITH 6 FR EXOSEAL R/GROIN CDI NO BLEEDING OR HEMATOMA NOTED. HR 76 WITH BP 122/64 CHEST PAIN IS DENIED
--- NOTE | 2018-09-22 10:13 | NUR ---
6 FR EXOSEAL R/GROIN IS CDI WITH R/FOOT WARM TO TOUCH. VSS AND CHEST PAIN IS DENIED
--- NOTE | 2018-09-22 10:45 | NUR ---
RESTING QUIETLY WITH NO DISTRESS NOTED. 6 FR EXOSEAL R/GROIN IS CDI WITH AREA SOFT TO PALPATE
--- NOTE | 2018-09-22 11:15 | NUR ---
PATIENT DENIED PAIN OR NEEDS. R/GROIN IS CDI WITH VSS CALL LIGHT IN REACH
--- NOTE | 2018-09-22 11:49 | NUR ---
PATIENT VOICED NO NEEDS WITH R/GROIN CDI
--- NOTE | 2018-09-22 12:27 | NUR ---
PATIENT CONTINUES TO REST WITH NO DISTRESS NOTED.
--- NOTE | 2018-09-22 12:57 | NUR ---
6 FR EXOSEAL R/GROIN IS CDI WITH CHEST PAIN DENIED. FAMILY IS PRESENT AT BEDSIDE
--- NOTE | 2018-09-22 13:30 | NUR ---
REPOSITIONED TO [facility] UP 30 FOR COMFORT. 6 FR EXOSEAL R/GROIN IS CDI WITH NO BLEEDING OR HEMATOMA NOTED. SANDWICH AND SODA TO BEDSIDE
--- NOTE | 2018-09-22 13:41 | NUR ---
PIV REMOVED WITH DRESSING APPLIED. R/GROIN REMAINS CDI WITH CHEST PAIN DENIED. PATIENT UP TO GET DRESSED FOR DISCHARGE HOME WITH FAMILY
--- NOTE | 2018-09-22 13:59 | NUR ---
VERBAL AND WRITTEN DISCHARGE GONE OVER WITH PATIENT AND DAUGHTER. PATIENT LEFT VIA WC TO PARKING FOR TRANSPORT HOME CHEST PAIN IS DENIED
== END 2018-09-22 14:00 | disposition home or self-care (01) ==
LOC: D.CATH 06:50
PROVIDERS: ATTEND Internal Medicine Cardiovascular Disease
DX: I25.719 Atherosclerosis of autologous vein coronary artery bypass graft(s) with unspecified angina pectoris (principal); Z01.812 Encounter for preprocedural laboratory examination

== ENCOUNTER → 2018-11-03 11:58 | Outpatient (CLI) | payer MEDICARE, BC ==
[2018-09-22 07:37] VITALS: BMI 29.8
[~2018-11-03 11:58] MED LIST changes: +PLAVIX75 MG PO; +SYSTANE NIGHTT3.5 GM EACH EYE
[2018-11-04 09:13] LABS: IMMUNOGLOBULIN A 100 mg/dL (61-437); IMMUNOGLOBULIN G 713 mg/dL (700-1600)
== END | disposition home or self-care (01) ==
LOC: D.RT 11:58
PROVIDERS: ATTEND Internal Medicine Pulmonary Disease
DX: J45.991 Cough variant asthma (principal)

== ENCOUNTER → 2018-12-10 08:29 | Outpatient (CLI) | payer MEDICARE, BC ==
[2018-09-22 07:37] VITALS: BMI 29.8
== END | disposition home or self-care (01) ==
LOC: D.CT 08:29
PROVIDERS: ATTEND Internal Medicine Cardiovascular Disease
DX: I71.2 Thoracic aortic aneurysm, without rupture (principal)

== ENCOUNTER → 2019-04-25 09:59 | Outpatient (CLI) | payer MEDICARE, BC ==
[2018-09-22 07:37] VITALS: BMI 29.8
== END | disposition home or self-care (01) ==
LOC: D.HCCECHO 09:59
PROVIDERS: ATTEND Internal Medicine Cardiovascular Disease
DX: I35.1 Nonrheumatic aortic (valve) insufficiency (principal)

== ENCOUNTER 2019-09-05 16:41 | Inpatient (IN) | payer MEDICARE, BC ==
[~2019-09-05] VITALS: Ht 172.7 cm; Wt 85.1 kg
--- NOTE | ~2019-09-05 | HEMODYNAMI ---
PATIENT:SHERLEY CROCKETT MEDICAL RECORD: [id number] : 38 LOCATION[id number] ADMISSION DATE: 09/06/19 Generatedon:09/07/201916:59 Patient name: SHERLEY CROCKETT Patient #: [id number] SSN: : 1940 Date of study: 09/07/2019 Page: Of Hemodynamic Procedure Report Patient Data Patient Demographics Procedure consent was obtained First Name: SHERLEY Gender: Male Last Name: BON : 1940 Middle Initial: ANIKET Age: 79 year(s) Patient #: [id number] Race: Unknown Additional ID: [id number] Contact details [address]: [address] [place] [address] State: [place] City: [place] Zip code: [address] Past Medical History Allergies Allergen Reaction Date Comments Reported Other allergy 09/22/2018 MORPHINE, MUCINEX D Other allergy 09/07/2019 guaifenesin, morphine,codeine Admission Admission Data Admission Date: 09/06/2019 Admission Time: 14:48 Room #: D.2122 Insurance Payor: Medicare Height (in.): 68 BSA: 1.99 (m2) Height (cm.): 172.72 BMI: 28.59 (kg/m2) Weight (lbs.): 188 Weight (kg.): 85.28 Current Diagnosis Diagnosis Description NSTEMI Lab Results Lab Result Date: 09/07/2019 Lab Result Time: 0:00 Biochemistry Name Units Result Min Max Creatinine mg/dl 1.3 --(---*)-- 0.6 1.3 eGFR ml/min 56 *-(----)-- 90 120 NONAFRICAN CBC Name Units Result Min Max Hematocrit % 43.6 --(*---)-- 42 54 Hemoglobin g/dl 13.8 --(*---)-- 13.5 17.5 Procedure Procedure Types Cath Procedure Diagnostic Procedure LHC LHC w/Coronaries w/Grafts Sedation Charges Moderate Sedation up to 15 minutes Procedure Description Procedure Date Procedure Date: 09/07/2019 Procedure Start Time: 16:30 Procedure End Time: 16:57 Procedure Staff Name Function Abner Olmos MD Performing Physician Oriana Mcwilliams RN Monitor Christian Macias RN Nurse Yvette Medina RT Scrub Procedure Data Cath Procedure Fluoroscopy Diagnostic fluoroscopy Total fluoroscopy Time: 5.2 time: 5.2 min min Diagnostic fluoroscopy Total fluoroscopy dose: 757 dose: 757 mGy mGy Contrast Material Contrast Material Type Amount (ml) Isovue 300 97 Entry Location Entry Primary Successful Side Size Upsize Upsize Entry Closure Succes sful Closure Location (Fr) 1 (Fr) 2 (Fr) Remarks Device Remarks Femoral Right 5 Fr Exoseal artery Estimated blood loss: 5 ml Diagnostic catheters Device Type Used For End Catheter Placement DIAGNOSTIC AR MOD 5Fr Procedure Catheter ([id number]) DIAGNOSTIC MPA-2 5Fr Procedure catheter ([id number]) MULTIPACK JL 4.0 5Fr Procedure catheter DIAGNOSTIC JL 5 5Fr Procedure catheter ([id number]) MULTIPACK Pigtail 5 Fr Procedure catheter Procedure Complications No complications Procedure Medications Medication Administration Route Dosage 0.9% NaCl I.V. 100 ml/hr Oxygen etCO2 Nasal cannula 2 l/min Heparin Flush Bag added to field 2 bags (1000units/500ml NS) Lidocaine 2% added to field 20 Versed I.V. 1 mg Fentanyl I.V. 25 mcg Hemodynamics Rest BSA: 1.99 (m2) O2 Consumption: Estimated: 228.29 (ml/min) O2 Consumption indexed : Estimated:114.72 (ml/min/m) Heart Rate: 71 (bpm) Pressure Samples Time Site Value (mmHg) Purpose Heart Use Rate(bpm) 16:44 LV 123/1,13 Snapshot 81 16:45 AO 115/54(78) Pullback 79 16:45 LV 133/0,17 Pullback 79 Gradients Valve Time Site 1 Site 2 Mean SEP/DFP Peak To Heart Use (mmHg) (sec/min) Peak Rate (mmHg) (bpm) Aortic 16:45 LV AO 17 23 18 79 133/0,17 115/54(78) Calculations Valve P-P Mean Valve Index Valve Source Name Gradient Area Flow (cm2) Aortic 18 17 18 17 Snapshots Pre Cath Intra NCS Post Cath Vital Signs Time Heart Resp SPO2 etCO2 NIBP (mmHg) Rhythm Pain Sedation Rate (ipm) (%) (mmHg) Status Level (bpm) 16:28:12 70 17 95 29.8 111/78(104) Paced 0 (11) 10(A) , No pain 16:33:07 69 18 92 0 125/82(105) Paced 0 (11) 10(A) , No pain 16:37:21 69 61 93 0 118/74(95) Paced 0 (11) 10(A) , No pain 16:41:35 72 22 95 0 128/69(113) Paced 0 (11) 9(A) , No pain 16:45:53 79 48 91 0 141/68(81) Paced 0 (11) 9(A) , No pain 16:50:10 77 17 92 1.4 126/72(105) Paced 0 (11) 9(A) , No pain 16:54:22 74 17 86 22.4 121/78(96) Paced 0 (11) 9(A) , No pain Medications Time Medication Route Dose Verified Delivered Reason Notes Eff ectiveness by by 16:26:41 0.9% NaCl I.V. 100 Christian Christian Per ml/hr Colleen Macias physician RN RN 16:26:53 Oxygen etCO2 2 Christian Christian for low 02 Nasal l/min Lorigan Jossyigan sats cannula RN RN 16:27:04 Heparin Flush added 2 Christian Christian used for Bag to bags Colleen Macias procedure (1000units/500ml [facility] RN RN NS) 16:27:14 Lidocaine 2% added 20ml Christian Christian for local to vial Lorigan Lorigan anesthetic field RN RN 16:34:15 Versed I.V. 1 mg Christian Christian for Lorigan Lorigan sedation RN RN 16:34:23 Fentanyl I.V. 25 Christian Christian for mcg Lorigan Lorigan sedation RN staff research scientist Log Time Note 16:06:45 Informed consent obtained and on chart 16:09:56 ACC Patient presents with Non-STEMI CCS Anginal Class 3--Marked limitation of physical activity, angina occurs with ordinary activity.. 16:09:59 Procedure Status Urgent Heart Cath (IP). 16:10:06 Christian Macias RN sent for patient. Start room use. 16:10:09 Time tracking: Regular hours (M-F 7:00 - 5:00) 16:10:16 Plan of Care:Hemodynamics will remain stable., Cardiac rhythm will remain stable., Comfort level will be maintained., Respiratory function will remain adequate., Patient/ family verbilizes understanding of procedure., Procedure tolerated without complication., Recovers from procedure without complications.. 16:10:26 H&P Date Dictated: 09/07/2019 Within 30 days and on chart.. 16:11:55 Patient allergic to Other allergyguaifenesin, morphine,codeine 16:13:51 Is the patient allergic to Iodine/contrast media? No. 16:13:52 Was the patient premedicated? N/A 16:14:32 Is patient on blood thinner?No 16:14:38 ACC The patient was administered the following blood thiners within the last 24 hours: None 16:16:21 Patient received from Med II to CCL 1 Alert and oriented. Tansferred to table in Supine position. 16:16:28 Warm blankets applied, and adriano hugger turned on for patient comfort. 16:16:29 Correct patient and procedure confirmed by team. 16:16:29 ECG and BP/O2 sat monitors applied to patient. 16:16:35 Pre-procedure instructions explained to patient. 16:16:35 Pre-op teaching completed and patient verbalized understanding. 16:16:41 Patient NPO since Midnight. 16:16:50 Family in patients room. 16:17:26 Patient diabetic? No. 16:17:29 If diabetic: On Metformin? N/A 16:17:42 Insurance Payor : Medicare 16:18:07 Patient Height : 68 inches 16:18:10 Patient Weight : 188 lbs 16:18:13 Current Diagnosis : NSTEMI 16:19:25 Lab Result : Hematocrit 43.6 % 16:19:25 Lab Result : eGFR NONAFRICAN 56 ml/min 16:19:25 Lab Result : Creatinine 1.3 mg/dl 16:19:25 Lab Result : Hemoglobin 13.8 g/dl 16:19:44 Diagnostic Cath Status : Urgent 16:21:26 Risk of Mortality: 0.9 16:21:29 Risk of blood transfusion: 2.2 16:21:32 Risk of UJANCARLOS: 7.9 16:21:55 Right groin area was prepped with chlora-prep and draped in sterile fashion 16:21:56 Alarms reviewed by R. N. 16::56 Sharps counted by scrub and verified by R.N. 16:22:09 Pre procedure: right dorsailis pedis pulse 1+ Palpable, but thready & weak; easily obliterated 16:22:15 IV patent on arrival in left forearm with 0.9% NaCl at [facility]. 16:22:22 Stress Test: no; N/A ? 16:22:37 Previous problem with sedation/anesthesia? No ? 16:22:39 Snore? Yes 16:22:40 Sleep apnea? Yes 16:22:42 Deviated septum? No 16:22:43 Opens mouth fully? Yes 16:22:44 Sticks out tongue? Yes 16:22:47 Airway obstruction? No ? 16:22:52 Dentures? Yes in tight 16:26:41 0.9% NaCl 100 ml/hr I.V. was administered by Christian Macias RN; Per physician; Verbal order read back and verified. 16::53 Oxygen 2 l/min etCO2 Nasal cannula was administered by Christian Macias RN; for low 02 sats; Verbal order read back and verified. 16:27:04 Heparin Flush Bag (1000units/500ml NS) 2 bags added to field was administered by Christian Macias RN; used for procedure; Verbal order read back and verified. 16:27:11 Vital chart was started 16:27:13 Baseline sample Acquired. 16:27:14 Lidocaine 2% 20ml vial added to field was administered by Christian Macias RN; for local anesthetic; Verbal order read back and verified. 16:27:19 Rhythm: paced 16:27:20 Full Disclosure recording started 16:27:26 Use device set Femoral Dx 16:27:28 ACIST Syringe (63335) opened to sterile field. 16:27:28 Bag Decanter (2002) opened to sterile field. 16:27:29 Medline Cath Pack ([id number]) opened to sterile field. 16:27:31 ACIST Hand Control (61531) opened to sterile field. 16:27:32 ACIST Manifold (40219) opened to sterile field. 16:27:36 SHEATH 5FR [place] (IXA815) opened to sterile field. 16:27:37 EMERALD Guide Wire (502-455) opened to sterile field. 16:29:52 --------ALL STOP TIME OUT------ 16:29:53 Final Timeout: patient, procedure, and site verified with staff and physician. All members of the team are in agreement. 16:29:55 Right groin site verified by team. 16:29:58 Fire Safety Assessment: A--An alcohol-based skin anteseptic being used preoperatively., C--Open oxygen or nitrous oxide is being used., D--An ESU, laser, or fiber-optic light is being used. 16:30:02 Physical assessment completed. ASA score P 3 - A patient with severe systemic disease as per Abner Olmos MD. 16:30:07 3a) 45-59 Moderately reduced kidney function. 16:30:10 Maximum allowable contrast dose (3.7 X eGFR X 0.75)155 ml. 16:30:14 Sedation plan: IV Moderate Sedation Medication:Versed, Fentanyl 16:30:47 Procedure started. 16:30:55 Local anesthetic to right femoral artery with Lidocaine 2% by Abner Olmos MD.INITIAL ACCESS ONLY 16:32:56 A 5 Fr sheath was inserted into the Right Femoral artery 16:34:15 Versed 1 mg I.V. was administered by Christian Macias RN; for sedation; Verbal order read back and verified. 16:34:23 Fentanyl 25 mcg I.V. was administered by Christian Macias RN; for sedation; Verbal order read back and verified. 16:34:38 A DIAGNOSTIC AR MOD 5Fr Catheter ([id number]) was advanced over the wire and used for Procedure. 16:34:56 SVG to Circ angiography performed. 16:35:33 SVG to LAD angiography performed. 16:35:37 Catheter exchanged over wire. 16:36:30 A DIAGNOSTIC MPA-2 5Fr catheter ([id number]) was advanced over the wire and used for Procedure. 16:37:21 SVG to RCA angiography performed. 16:37:41 Catheter exchanged over wire. 16:39:16 A MULTIPACK JL 4.0 5Fr catheter was advanced over the wire and used for Procedure. 16:39:20 Catheter exchanged over wire. 16:39:42 ACCDominant side:Co-Dominant 16:40:36 A DIAGNOSTIC JL 5 5Fr catheter ([id number]) was advanced over the wire and used for Procedure. 16:40:51 LCA angiography performed. 16:43:08 Catheter exchanged over wire. 16:43:15 A MULTIPACK Pigtail 5 Fr catheter was advanced over the wire and used for Procedure. 16:45:04 LV gram done using STONE 16:45:15 EF : 45 % 16:45:16 LV hemodynamics recorded. 16:45:20 Injector settings: Ml/sec: 10, Volume: 20, 16:49:08 Catheter removed. 16:50:15 Sheath removed intact; hemostasis achieved with Exoseal to the Right Femoral artery. 16:50:24 Procedure ended.(Physican Out) 16:53:40 Fluoroscopy time 05.20 minutes. 16:53:45 Fluoroscopy dose: 757 mGy 16:53:45 Flurop Dose total: 757 16:53:51 Dose Area Product 04755 mGy/cm. 16:53:55 Contrast amount:Isovue 300 97ml. 16:53:58 Maximum allowable dose exceeded? No. 16:53:59 Sharps counted by scrub and verified by R.N. 16:54:06 Insertion/operative site no bleeding no hematoma. 16:54:10 Post-op/insertion site Right Femoral artery dressed using a 4 x 4 and Tegaderm. 16:54:16 Post right femoral artery:stable, soft, clean and dry 16:54:19 Post Procedure Pulses reassessed and unchanged 16:54:24 Post procedure: right dorsailis pedis pulse 2+ Normal; easily identifiable; not easily obliterated. 16:54:29 Post-procedure physical assessment completed. ASA score P 3 - A patient with severe systemic disease as per Abner Olmos MD. 16:54:32 Post procedure rhythm: unchanged. 16:54:36 Estimated blood loss: 5 ml 16:54:38 Post procedure instruction explained to patient.Patient verbalizes understanding. 16:54:39 Patient needs reinforcement of post procedure teaching. 16:54:58 Procedure type changed to Cath procedure, Diagnostic procedure, LHC, LHC w/Coronaries w/Grafts, Sedation Charges, Moderate Sedation up to 15 minutes 16:57:13 Procedure and supply charges have been captured, reviewed, submitted and are correct. 16:57:17 Procedure Complication : No complications 16:57:20 Vital chart was stopped 16:57:21 LHC Findings: mild to moderate CAD (<70%) 16:57:23 Operative report dictated upon procedure completion. 16:57:23 See physician's report for complete and final results. 16:57:25 Report given to [facility]. 16:57:30 Patient transfered to [facility] with Bed. 16:57:37 Procedure ended. 16:57:37 Full Disclosure recording stopped 16:57:41 End room use (Document Last) 16:57:53 End room use (Document Last) 16:58:16 End room use (Document Last) Device Usage Item Name Manufacture Quantity Catalog Hospital Part Current Minimal L ot# / Number Charge Number Stock Stock Serial# Code ACIST Acist 1 77258 395427 419231 503796 20 Syringe Medical (05627) Systems Inc Bag Microtek 1 598265 03177 827848 5 Decanter Medical Inc. () Medline Medline 1 [id number] 455145 30101 553274 5 Cath Pack ([id number]) ACIST Hand Acist 1 65606 071740 188697 154234 5 Control Medical (58499) Systems Inc ACIST Acist 1 77305 952667 862267 604182 5 Manifold Medical (20600) Systems Inc SHEATH 5FR Terumo 1 [id number] 915738 994177 406765 5 [place] (RVI895) EMERALD Cardinal 1 502-455 514719 773618 697045 5 Guide Wire Health (502-455) DIAGNOSTIC Cardinal 1 215602Q 597591 030502 184142 15 AR MOD 5Fr Health Catheter (439905N) DIAGNOSTIC Cardinal 1 303133X 001991 846661 892478 5 MPA-2 5Fr Health catheter (891036U) MULTIPACK Cardinal 1 719414 5 JL 4.0 5Fr Health catheter DIAGNOSTIC Cardinal 1 [id number] 668518 157550 870201 5 JL 5 5Fr Health catheter (735718P) MULTIPACK Cardinal 1 474954 5 Pigtail 5 Health Fr catheter Signature [place] Stage Time Signature Unsigned Intra-Procedure 09/07/2019 Oriana Mcwilliams 4:57:53 PM RN Intra-Procedure 09/07/2019 Christian 4:58:16 PM Colleen FRANKS Intra-Procedure 09/07/2019 Abner Olmos MD 4:59:41 PM [facility] [address] [place] [address]
[2019-09-05 17:14] LABS: BASOPHILS 0.2 % (0-2); EOSINOPHILS 3.2 % (0-7); HEMATOCRIT 42.2 % (42.0-54.0); HEMOGLOBIN 13.4 g/dL (13.5-17.5); IMMATURE GRANULOCYTES 0.2 % (0-5); MCH 24.2 pg (26.0-34.0); MCHC 31.8 g/dL (31.0-37.0); MCV 76.3 fL (80.0-100.0); MEAN PLATELET VOLUME 8.8 fL (7.4-10.4); MONOCYTES 8.7 % (2-11); NEUTROPHILS 63.7 % (40-80); RBC 5.53 10x6/uL (4.20-6.10); RDW 16.2 % (11.5-14.5); WBC 10.3 10x3/uL (4.8-10.8)
[2019-09-05 17:16] LABS: PLATELET COUNT 290 10x3/uL (130-400)
[2019-09-05 17:22] LABS: APTT 28.3 SECONDS (22.8-39.4); INR 0.96 (0.85-1.17); PROTIME 12.8 SECONDS (11.6-15.0)
[2019-09-05 17:24] LABS: CALC OSMOLALITY 288 mosm/kg (275-300); CALCIUM 9.1 mg/dL (8.5-10.1); CHLORIDE - SERUM 106 mmol/L (98-107); CREATININE - SERUM 1.2 mg/dL (0.6-1.3); GLUCOSE 144 mg/dL (74-106); POTASSIUM - SERUM 4.2 mmol/L (3.5-5.1); SODIUM 141 mmol/L (136-145); UREA NITROGEN 26 mg/dL (7-18); eGFR NON AFRICAN AMERICAN 62 mL/min (90-120)
[2019-09-05 17:31] VITALS: BP 155/79
[2019-09-05 17:37] LABS: ALBUMIN 3.9 g/dL (3.4-5.0); ALKALINE PHOSPHATASE 236 U/L (30-120); ALT (SGPT) 25 U/L (10-68); BILIRUBIN - TOTAL 1.39 mg/dL (0.2-1.3); CKMB 0.9 U/L (0.0-3.6); CREATINE KINASE 41 UL (21-232); MAGNESIUM - SERUM 2.2 mg/dL (1.8-2.4); PROTEIN - SERUM 7.1 g/dL (6.4-8.2); TROPONIN-I < 0.017 ng/mL (0.000-0.060)
[2019-09-05] MEDS ORDERED: BAYER CHEWABLE81 MG PO (22:27)
[2019-09-05] MEDS ORDERED: SYNTHROID125 MCG PO (22:28)
[2019-09-05] MEDS ORDERED: BETAPACE 80 MG80 MG PO (22:28)
[2019-09-05] MEDS ORDERED: ZETIA10 MG PO (22:29)
[2019-09-05] MEDS ORDERED: ZOCOR20 MG PO (22:29)
[2019-09-05] MEDS ORDERED: PROSCAR5 MG PO (22:30)
[2019-09-05] MEDS ORDERED: MOBIC7.5 MG PO (22:30)
[2019-09-06 00:31] VITALS: BP 139/76
[2019-09-06 00:32] VITALS: BMI 27.8
[2019-09-06 05:19] VITALS: BP 121/67
[2019-09-06 05:35] LABS: BASOPHILS 0.2 % (0-2); EOSINOPHILS 3.1 % (0-7); HEMATOCRIT 41.5 % (42.0-54.0); IMMATURE GRANULOCYTES 0.2 % (0-5); LYMPHOCYTES 27.6 % (15-50); MCHC 31.3 g/dL (31.0-37.0); MCV 76.7 fL (80.0-100.0); MEAN PLATELET VOLUME 8.7 fL (7.4-10.4); MONOCYTES 9.6 % (2-11); NEUTROPHILS 59.3 % (40-80); PLATELET COUNT 283 10x3/uL (130-400); RBC 5.41 10x6/uL (4.20-6.10); RDW 16.4 % (11.5-14.5); WBC 9.5 10x3/uL (4.8-10.8)
[2019-09-06 07:49] LABS: ALBUMIN 3.9 g/dL (3.4-5.0); ALKALINE PHOSPHATASE 217 U/L (30-120); CALC OSMOLALITY 295 mosm/kg (275-300); CALCIUM 9.4 mg/dL (8.5-10.1); CARBON DIOXIDE 32.8 mmol/L (21.0-32.0); CHLORIDE - SERUM 108 mmol/L (98-107); CKMB 119.5 U/L (0.0-3.6); CREATININE - SERUM 1.1 mg/dL (0.6-1.3); GLUCOSE 123 mg/dL (74-106); PROTEIN - SERUM 6.6 g/dL (6.4-8.2); SODIUM 146 mmol/L (136-145); UREA NITROGEN 23 mg/dL (7-18); eGFR NON AFRICAN AMERICAN 68 mL/min (90-120)
[2019-09-06 07:51] LABS: ALT (SGPT) 43 U/L (10-68); CREATINE KINASE 764 UL (21-232); POTASSIUM - SERUM 4.9 mmol/L (3.5-5.1)
[2019-09-06 09:53] VITALS: BP 126/63
[2019-09-06 14:08] VITALS: BP 94/56
[2019-09-06 14:14] VITALS: Ht 172.7 cm; Wt 85.1 kg
[2019-09-06 15:56] LABS: BASOPHILS 0.2 % (0-2); EOSINOPHILS 2.3 % (0-7); HEMATOCRIT 43.6 % (42.0-54.0); HEMOGLOBIN 13.8 g/dL (13.5-17.5); IMMATURE GRANULOCYTES 0.2 % (0-5); MCH 24.6 pg (26.0-34.0); MCHC 31.7 g/dL (31.0-37.0); MCV 77.7 fL (80.0-100.0); MEAN PLATELET VOLUME 9.3 fL (7.4-10.4); NEUTROPHILS 64.3 % (40-80); PLATELET COUNT 311 10x3/uL (130-400); RBC 5.61 10x6/uL (4.20-6.10); RDW 16.4 % (11.5-14.5); WBC 10.7 10x3/uL (4.8-10.8)
[2019-09-06 16:00] VITALS: BP 99/62
[2019-09-06 16:10] LABS: ANION GAP 17.2 mmol/L (8-16); CALCIUM 9.1 mg/dL (8.5-10.1); CARBON DIOXIDE 26.1 mmol/L (21.0-32.0); CHOL - HDL RATIO 3.5 ratio (2.3-4.9); CREATININE - SERUM 1.3 mg/dL (0.6-1.3); LDL-HDL RATIO 1.6 ratio (1.5-3.5); POTASSIUM - SERUM 4.3 mmol/L (3.5-5.1)
[2019-09-06 21:17] VITALS: BP 107/67
[2019-09-07 00:26] VITALS: BP 115/82
[2019-09-07 06:00] VITALS: BP 118/65
[2019-09-07 07:29] LABS: BASOPHILS 0.2 % (0-2); EOSINOPHILS 1.8 % (0-7); HEMATOCRIT 44.3 % (42.0-54.0); IMMATURE GRANULOCYTES 0.3 % (0-5); LYMPHOCYTES 26.5 % (15-50); MCH 24.1 pg (26.0-34.0); MCHC 31.6 g/dL (31.0-37.0); MCV 76.2 fL (80.0-100.0); MEAN PLATELET VOLUME 9.1 fL (7.4-10.4); MONOCYTES 8.2 % (2-11); PLATELET COUNT 287 10x3/uL (130-400); RBC 5.81 10x6/uL (4.20-6.10); RDW 16.3 % (11.5-14.5)
[2019-09-07 07:56] LABS: ANION GAP 12.2 mmol/L (8-16); CALCIUM 9.5 mg/dL (8.5-10.1); CARBON DIOXIDE 30.3 mmol/L (21.0-32.0); CREATININE - SERUM 1.2 mg/dL (0.6-1.3); MAGNESIUM - SERUM 2.3 mg/dL (1.8-2.4); POTASSIUM - SERUM 4.5 mmol/L (3.5-5.1)
[2019-09-07 11:29] VITALS: BP 134/68
[2019-09-07 15:19] VITALS: BP 111/59
[2019-09-07 20:00] VITALS: BP 146/71
[2019-09-08] VITALS: BP 136/84
[2019-09-08 04:00] VITALS: BP 119/65
[2019-09-08 05:45] LABS: ANION GAP 13.3 mmol/L (8-16); CARBON DIOXIDE 29.7 mmol/L (21.0-32.0); CREATININE - SERUM 1.2 mg/dL (0.6-1.3); MAGNESIUM - SERUM 2.1 mg/dL (1.8-2.4)
[2019-09-08 05:49] LABS: BASOPHILS 0.3 % (0-2); EOSINOPHILS 1.6 % (0-7); HEMOGLOBIN 13.9 g/dL (13.5-17.5); IMMATURE GRANULOCYTES 0.4 % (0-5); LYMPHOCYTES 26.7 % (15-50); MCH 24.2 pg (26.0-34.0); MCHC 31.6 g/dL (31.0-37.0); MCV 76.5 fL (80.0-100.0); MEAN PLATELET VOLUME 9.2 fL (7.4-10.4); MONOCYTES 9.4 % (2-11); NEUTROPHILS 61.6 % (40-80); PLATELET COUNT 306 10x3/uL (130-400); RBC 5.75 10x6/uL (4.20-6.10); RDW 16.1 % (11.5-14.5); WBC 11.3 10x3/uL (4.8-10.8)
[2019-09-08 10:25] VITALS: BP 113/52
[2019-09-08 14:04] VITALS: BP 103/65
[2019-09-08] MEDS ORDERED: XARELTO20 MG PO (14:56)
--- NOTE | 2019-09-08 16:53 | MORECARE ---
CASE MANAGEMENT DISCHARGE SUMMARY PATIENT: SHERLEY CROCKETT UNIT: [id number] ADM DATE: 09/06/19 AGE: 79 : 39 SEX: M ROOM/BED: D.2122 AUTHOR: DOMINGA CARRILLO PHYSICIAN: REFERRING PHYSICIAN: LIZZ CURTIS MD DATE OF SERVICE: 09/08/19 Discharge Plan Patient Name: SHERLEY CROCKETT Facility: [facility]:[place] : 1940 Planned Disposition: Home Anticipated Discharge Date: 09/08/19 Discharge Date: Expected LOS: 2 Initial Reviewer: [email or web address] Initial Review Date: 09/08/2019 Generated: 09/08/19 5:52 pm Patient Name: SHERLEY CROCKETT Page 70451 at 1653 All edits/amendments must be made on the electronic document DICTATION DATE: 09/08/191651 CORE BLOWER OPERATOR: BEKA 09/08/191651 RPT#: [id number] DC DATE: STATUS: ADM IN [facility] [address] [place] [address] END OF REPORT
--- NOTE | 2019-09-08 17:01 | MORECARE ---
CASE MANAGEMENT DISCHARGE SUMMARY PATIENT: SHERLEY CROCKETT UNIT: [id number] ADM DATE: 09/06/19 AGE: 79 : 39 SEX: M ROOM/BED: D.5034 AUTHOR: LORENA,DOC PHYSICIAN: REFERRING PHYSICIAN: LIZZ CURTIS MD DATE OF SERVICE: 09/08/19 Discharge Plan Patient Name: SHERLEY CROCKETT Facility: [facility]:[place] : 1940 Planned Disposition: Home Anticipated Discharge Date: 09/08/19 Discharge Date: Expected LOS: 2 Initial Reviewer: [email or web address] Initial Review Date: 09/08/2019 Generated: 09/08/19 6:01 pm Comments DCP- Discharge Planning Updated by [email or web address]: Roberto Hendrix on 09/08/19 3:[address] Patient Name: SHERLEY CROCKETT Admission Status: ER Accout number: [id number] Admission Date: 09-06-2019 : 1940 Admission Diagnosis: Attending: LISSETT CURTIS Current LOS: 2 Anticipated DC Date: 09-08-2019 Planned Disposition: Home Primary Insurance: MEDICARE A & B Discharge Planning Comments: CM MET WITH PT IN ROOM TO DISCUSS DISCHARGE PLANNING AND NEEDS. PT REPORTS LIVING AT HOME INDEPENDENTLY WITH SPOUSE. PT HAS CPAP FROM [facility], HOME OXYGEN FROM [facility], AND WALKER. PT DOES NOT USE ANY OF HIS MEDICAL EQUIPMENT. PT HAS NO OUTSIDE SERVICES ASSISTING IN THE HOME. CM DISCUSSED AVAILABILITY OF HOME HEALTH, REHAB SERVICES AND MEDICAL EQUIPMENT. PT DENIES DISCHARGE NEEDS, REPORTS HIS WILL PICK HIM UP FOR DISCHARGE HOME. IMPORTANT MESSAGE FROM MEDICARE PROVIDED AND EXPLAINED. [employer] Miss[employer] Crewmember: Roberto Hendrix DCPIA - Discharge Planning Initial Assessment Updated by [email or web address]: Roberto Hendrix on 09/08/19 4:56 pm * Is the patient Alert and Oriented? Yes * How many steps to enter\exit or inside your home? * PCP DR. LEVY * [facility] * Preadmission Environment Home with Family * ADLs Independent * Equipment CPAP Oxygen Walker * Other Equipment PT DOES NOT USE ANY OF HIS MEDICAL EQUIPMENT CPAP FROM [facility] HOME OXYGEN FROM [facility] * List name and contact numbers for known caregivers / representatives who currently or will assist patient after discharge: JORGE PISANO, SPOUSE, * Verbal permission to speak to the caregivers and representatives has been obtained from the patient. N/A * Community resources currently utilized None * Please name any agencies selected above. NONE * Additional services required to return to the preadmission environment? No * Can the patient safely return to the preadmission environment? Yes * Has this patient been hospitalized within the prior 30 days at any hospital? No Coverage Notice Reviewer: [id number] Andres Hendrix Notice Issued Date-Time: 09/08/2019 16:12 Notice Type: IM Discharge Notice Notice Delivered To: Patient Relationship to Patient: Insole Doubler Name: Delivery Method: HAND - Hand Delivered Kelly Days: Prior Verbal Notification: Recipient Understood Notice: Yes Recipient Signature: Yes Med Rec Note Co-signed by Attending: Coverage Notice Comment: [facility] IM 09-08-19,. 1612, TB Last DP export: 09/08/19 3:53 pm Patient Name: SHERLEY CROCKETT Page 87677 at 1701 All edits/amendments must be made on the electronic document DICTATION DATE: 09/08/19 170 SLICING MACHINE OPERATOR: BEKA 09/08/191700 RPT#: [id number] DC DATE: STATUS: ADM IN [facility] [address] [place] [address] END OF REPORT
--- NOTE | 2019-09-09 15:18 | MORECARE ---
CASE MANAGEMENT DISCHARGE SUMMARY PATIENT: SHERLEY CROCKETT UNIT: [id number] ADM DATE: 09/06/19 AGE: 79 : 39 SEX: M ROOM/BED: D.4712 AUTHOR: LORENA,DOC PHYSICIAN: REFERRING PHYSICIAN: LIZZ CURTIS MD DATE OF SERVICE: 09/09/19 Discharge Plan Patient Name: SHERLEY CROCKTET Facility: [facility]:[place] : 1940 Planned Disposition: Home Anticipated Discharge Date: 09/08/19 Discharge Date: 09/08/2019 Expected LOS: 2 Initial Reviewer: [email or web address] Initial Review Date: 09/08/2019 Generated: 09/09/19 4:18 pm Comments DCP- Discharge Planning Updated by [email or web address]: Marysol Paz on 09/09/19 2:[address] ROMAN SERVED, EXPLAINED, AND SIGNED BY PATIENT. THE ORIGINAL WAS PROVIDED TO THE PATIENT AND COPY PLACED ON CHART. DCP- Discharge Planning Updated by [email or web address]: Roberto Hendrix on 09/08/19 3:[address] Patient Name: SHERLEY CROCKETT Admission Status: ER Accout number: [id number] Admission Date: 09-06-2019 : 1940 Admission Diagnosis: Attending: LISSETT CURTIS Current LOS: 2 Anticipated DC Date: 09-08-2019 Planned Disposition: Home Primary Insurance: MEDICARE A & B Discharge Planning Comments: CM MET WITH PT IN ROOM TO DISCUSS DISCHARGE PLANNING AND NEEDS. PT REPORTS LIVING AT HOME INDEPENDENTLY WITH SPOUSE. PT HAS CPAP FROM [facility], HOME OXYGEN FROM [facility], AND WALKER. PT DOES NOT USE ANY OF HIS MEDICAL EQUIPMENT. PT HAS NO OUTSIDE SERVICES ASSISTING IN THE HOME. CM DISCUSSED AVAILABILITY OF HOME HEALTH, REHAB SERVICES AND MEDICAL EQUIPMENT. PT DENIES DISCHARGE NEEDS, REPORTS HIS WILL PICK HIM UP FOR DISCHARGE HOME. IMPORTANT MESSAGE FROM MEDICARE PROVIDED AND EXPLAINED. Hose Cementer: Roberto Hendrix DCPIA - Discharge Planning Initial Assessment Updated by [email or web address]: Roberto Hendrix on 09/08/19 4:56 pm * Is the patient Alert and Oriented? Yes * How many steps to enter\exit or inside your home? * PCP DR. LEVY * [facility] * Preadmission Environment Home with Family * ADLs Independent * Equipment CPAP Oxygen Walker * Other Equipment PT DOES NOT USE ANY OF HIS MEDICAL EQUIPMENT [facility] HOME OXYGEN FROM [facility] * List name and contact numbers for known caregivers / representatives who currently or will assist patient after discharge: JORGE PISANO, SPOUSE, * Verbal permission to speak to the caregivers and representatives has been obtained from the patient. N/A * Community resources currently utilized None * Please name any agencies selected above. NONE * Additional services required to return to the preadmission environment? No * Can the patient safely return to the preadmission environment? Yes * Has this patient been hospitalized within the prior 30 days at any hospital? No Coverage Notice Reviewer: [email or web address] Andres Hendrix Notice Issued Date-Time: 09/08/2019 16:12 Notice Type: IM Discharge Notice Notice Delivered To: Patient Relationship to Patient: Knife Glazer Name: Delivery Method: HAND - Hand Delivered Kelly Days: Prior Verbal Notification: Recipient Understood Notice: Yes Recipient Signature: Yes Med Rec Note Co-signed by Attending: Coverage Notice Comment: DC 09-08-19,. 1612, TB Reviewer: [email or web address] Andres Paz Notice Issued Date-Time: 09/06/2019 16:00 Notice Type: Medicare Outpatient Observation Notice Notice Delivered To: Patient Relationship to Patient: Knife Glazer Name: Delivery Method: HAND - Hand Delivered Kelly Days: Prior Verbal Notification: Recipient Understood Notice: Yes Recipient Signature: Yes Med Rec Note Co-signed by Attending: Coverage Notice Comment: ROMAN SERVED, EXPLAINED, AND SIGNED BY PATIENT. THE ORIGINAL WAS PROVIDED TO THE PATIENT AND COPY PLACED ON CHART. Last DP export: 09/08/19 4:01 pm Patient Name: SHERLEY CROCKETT Page 81211 at 1518 All edits/amendments must be made on the electronic document DICTATION DATE: 09/09/191517 HOG DRIVER: BEKA 09/09/191517 RPT#: [id number] DC DATE:09/08/19 STATUS: DIS IN [facility] [address] [place] [address] END OF REPORT
== END 2019-09-08 18:07 | disposition home or self-care (01) | DRG 280 ==
LOC: D.ER 16:41 → D.M2 20:01 → OBSVTIME 20:01 → D.M2 09-06 14:48
PROVIDERS: Family Medicine; Internal Medicine Cardiovascular Disease; ADMIT Emergency Medicine; ATTEND Emergency Medicine
PROC: B2151ZZ Fluoroscopy of Left Heart using Low Osmolar Contrast (ICD-10-PCS; 2019-09-07)
PROC: 4A023N7 Measurement of Cardiac Sampling and Pressure, Left Heart, Percutaneous Approach (ICD-10-PCS; 2019-09-07)
PROC: B2111ZZ Fluoroscopy of Multiple Coronary Arteries using Low Osmolar Contrast (ICD-10-PCS; principal; 2019-09-07 16:10)
DX: I21.4 Non-ST elevation (NSTEMI) myocardial infarction (principal); J96.21 Acute and chronic respiratory failure with hypoxia; I25.110 Atherosclerotic heart disease of native coronary artery with unstable angina pectoris; I48.0 Paroxysmal atrial fibrillation; I10 Essential (primary) hypertension; D50.9 Iron deficiency anemia, unspecified; E03.9 Hypothyroidism, unspecified; G89.29 Other chronic pain; M54.9 Dorsalgia, unspecified; K21.9 Gastro-esophageal reflux disease without esophagitis; E78.5 Hyperlipidemia, unspecified; Z95.0 Presence of cardiac pacemaker

== ENCOUNTER 2019-09-21 13:56 | Emergency (ER) | payer MEDICARE, BC ==
[~2019-09-21] VITALS: Ht 172.7 cm; Wt 83.2 kg
[~2019-09-21 13:56] MED LIST changes: +XARELTO20 MG PO; +ZOCOR20 MG PO
[2019-09-21 14:05] VITALS: Ht 172.7 cm; Wt 83.2 kg
[2019-09-21 14:46] LABS: BASOPHILS 0.1 % (0-2); EOSINOPHILS 1.1 % (0-7); HEMATOCRIT 42.1 % (42.0-54.0); HEMOGLOBIN 13.5 g/dL (13.5-17.5); IMMATURE GRANULOCYTES 0.4 % (0-5); LYMPHOCYTES 23.3 % (15-50); MCH 24.5 pg (26.0-34.0); MCHC 32.1 g/dL (31.0-37.0); MCV 76.5 fL (80.0-100.0); MEAN PLATELET VOLUME 9.1 fL (7.4-10.4); MONOCYTES 9.5 % (2-11); NEUTROPHILS 65.6 % (40-80); PLATELET COUNT 249 10x3/uL (130-400); RDW 14.9 % (11.5-14.5); WBC 12.3 10x3/uL (4.8-10.8)
[2019-09-21 15:06] LABS: ANION GAP 10.7 mmol/L (8-16); CALCIUM 9.2 mg/dL (8.5-10.1); CARBON DIOXIDE 29.7 mmol/L (21.0-32.0); CREATININE - SERUM 1.3 mg/dL (0.6-1.3); POTASSIUM - SERUM 4.4 mmol/L (3.5-5.1)
[2019-09-21 15:11] LABS: ALBUMIN 3.7 g/dL (3.4-5.0); BILIRUBIN - TOTAL 1.11 mg/dL (0.2-1.3); PROTEIN - SERUM 7.3 g/dL (6.4-8.2)
[2019-09-21] MEDS ORDERED: ALBUTEROL SULF8.5 GM INH (17:58)
[2019-09-21 18:00] VITALS: BP 132/78
== END 2019-09-21 18:36 | disposition home or self-care (01) ==
LOC: D.ER 13:56
PROVIDERS: Emergency Medicine
DX: J40 Bronchitis, not specified as acute or chronic (principal); R51 Headache; R09.81 Nasal congestion; R05 Cough; Z95.0 Presence of cardiac pacemaker; K21.9 Gastro-esophageal reflux disease without esophagitis; E03.9 Hypothyroidism, unspecified

== ENCOUNTER 2019-10-11 11:48 | Outpatient (CLI) | payer MEDICARE, BC ==
[~2019-10-11] VITALS: Ht 172.7 cm; Wt 81.8 kg
--- NOTE | ~2019-10-11 | HEMODYNAMI ---
PATIENT:SHERLEY CROCKETT MEDICAL RECORD: [id number] : 38 LOCATION:[facility] ADMISSION DATE: 10/11/19 Generatedon:10/11/201915:33 Patient name: SHERLEY CROCKETT Patient #: [id number] SSN: : 1940 Date of study: 10/11/2019 Page: Of Hemodynamic Procedure Report Patient Data Patient Demographics Procedure consent was obtained First Name: SHERLEY Gender: Male Last Name: BON : 1940 Middle Initial: ANIKET Age: 79 year(s) Patient #: [id number] Race: Unknown Additional ID: [id number] Contact details Address: [address] [place] [address] [facility] [place] [facility] Zip code: [address] Past Medical History Allergies Allergen Reaction Date Comments Reported Other allergy 09/22/2018 MORPHINE, MUCINEX D Other allergy 09/07/2019 guaifenesin, morphine,codeine Admission Admission Data Admission Date: 10/11/2019 Admission Time: 11:48 Procedure Procedure Types Cath Procedure Diagnostic Procedure PPM/ICD Permanent Pacer Generator Exg. Generator Removal Lead Replacement Single Procedure Description Procedure Date Procedure Date: 10/11/2019 Procedure Start Time: 15:01 Procedure End Time: 15:30 Procedure Staff Name Function Mane Alarcon MD Performing Physician Anjana wAad RT Monitor Mckenna Eller RT Scrub Karma Tong RN Nurse Ronald Delacruz MD Assisting physician Latasha Jimenez RT Monitor Procedure Data Cath Procedure Fluoroscopy Diagnostic fluoroscopy Total fluoroscopy Time: 0.8 time: 0.8 min min Diagnostic fluoroscopy Total fluoroscopy dose: dose: 26.63 mGy 26.63 mGy Estimated blood loss: 10 ml Procedure Complications No complications Procedure Medications Medication Administration Route Dosage Oxygen etCO2 Nasal cannula 2 l/min Vancomycin I.V.P.B 1 g Vancomycin Topical 1 g Irrigation Lidocaine 1% added to field 20 Versed I.V. 2 mg Fentanyl I.V. 100 mcg Versed I.V. 1 mg Fentanyl I.V. 50 mcg Hemodynamics Rest Heart Rate: 76 (bpm) Snapshots Pre Cath Intra NCS Post Cath Vital Signs Time Heart Resp SPO2 etCO2 NIBP (mmHg) Rhythm Pain Sedation Rate (ipm) (%) (mmHg) Status Level (bpm) 14:15:28 64 18 100 127/65(120) Paced (Missing) 10(A) 14:19:34 90 14 100 0 133/87(113) Paced (Missing) 10(A) 14:23:44 65 17 100 0 140/77(108) Paced (Missing) 10(A) 14:28:43 65 13 100 0 137/82(112) Paced (Missing) 10(A) 14:32:55 65 14 100 0 128/79(95) Paced (Missing) 10(A) 14:37:03 65 13 100 0 137/76(114) Paced (Missing) 10(A) 14:41:15 65 13 100 0 139/75(92) Paced (Missing) 10(A) 14:45:27 65 13 100 0 130/79(101) Paced (Missing) 10(A) 14:49:37 65 16 100 0 131/71(101) Paced (Missing) 10(A) 14:53:47 65 13 100 0 118/73(88) Paced (Missing) 10(A) 14:57:52 65 12 100 0 130/76(94) Paced (Missing) 10(A) 15:02:10 140 31 100 0 116/49(82) Paced (Missing) 9(A) 15:06:16 65 19 100 0 105/67(82) Paced (Missing) 9(A) 15:10:18 65 19 100 0 99/68(79) Paced (Missing) 9(A) 15:15:07 79 20 100 0 121/72(89) Paced (Missing) 9(A) 15:19:12 59 14 100 0 135/78(108) Paced (Missing) 9(A) 15:23:22 67 16 100 0 145/74(118) Paced (Missing) 10(A) Medications Time Medication Route Dose Verified Delivered Reason Notes Effectiv eness by by 14:24:03 Oxygen etCO2 2 Mane Parada used for Nasal l/min [facility] Le[facility] Tong stitch bonder machine operator helper cannula 14:24:12 Vancomycin I.V.P.B 1 g Maen Buffie used for [facility] Leandro Tong RN procedure 14:24:19 Vancomycin Topical 1 g Mane Parada used for Irrigation [facility] Leandro Tong stitch bonder machine operator helper 14:24:39 Lidocaine added 20ml Mane Gilliam for local 1% to vial [facility] anesthetic field x2 MD BUSTAMANTE 14:59:38 Versed I.V. 2 mg Mane Parada for [facility] Leandro Tong RN sedation 14:59:47 Fentanyl I.V. 100 Mane Parada for mcg [facility] Leandro Tong RN sedation 15:05:35 Versed I.V. 1 mg Mane Parada for [place] Alycia RN sedation 15:05:39 Fentanyl I.V. 50 Mane Parada for mcg [facility] Leandro Tong RN sedation Procedure Log Time Note 14:00:08 Karma Tong RN sent for patient. Start room use. 14:08:39 Diagnostic Cath Status : Elective 14:09:14 Time tracking: Regular hours (M-F 7:00 - 5:00) 14:09:18 Plan of Care:Hemodynamics will remain stable., Cardiac rhythm will remain stable., Comfort level will be maintained., Respiratory function will remain adequate., Patient/ family verbilizes understanding of procedure., Procedure tolerated without complication., Recovers from procedure without complications.. 14:09:23 Patient received from Pre/Post Procedure Room to CCL 3 Alert and oriented. Tansferred to table in Supine position. 14:09:25 Warm blankets applied, and adriano hugger turned on for patient comfort. 14:09:27 Signed procedure consent form obtained from patient. 14:09:27 Correct patient and procedure confirmed by team. 14:09:28 ECG and BP/O2 sat monitors applied to patient. 14:14:12 Vital chart was started 14:14:13 Baseline sample Acquired. 14:14:18 Rhythm: paced 14:14:19 Full Disclosure recording started 14:14:23 H&P Date Dictated: 10/11/2019 Within 30 days and on chart., H&P Addendum completed by physician on day of procedure. (MUST COMPLETE FOR ALL OUTPATIENTS). 14:14:25 Pre-procedure instructions explained to patient. 14:14:25 Pre-op teaching completed and patient verbalized understanding. 14:14:28 Family in patients room. 14:14:29 Patient NPO since Midnight. 14:14:50 Is the patient allergic to Iodine/contrast media? No. 14:14:50 Was the patient premedicated? No 14:14:58 Is patient on blood thinner?Yes 14:15:19 patient states last dose of Xarelto on 10/07/2019 14:15:27 Patient diabetic? No. 14:15:29 Previous problem with sedation/anesthesia? No ? 14:15:31 Snore? Yes 14:15:32 Sleep apnea? Yes 14:15:33 Deviated septum? No 14:15:34 Opens mouth fully? Yes 14:15:35 Sticks out tongue? Yes 14:15:39 Airway obstruction? No ? 14:15:44 Dentures? No ? 14:15:47 Pre procedure: right dorsailis pedis pulse 2+ Normal; easily identifiable; not easily obliterated 14:15:50 Pre procedure: left dorsailis pedis pulse 2+ Normal; easily identifiable; not easily obliterated 14:15:52 Patient pain scale 0/10 ?. 14:15:59 IV patent on arrival in left forearm with 0.9% NaCl at [facility]. 14:16:02 Lab results completed and on chart. 14:16:07 Left chest area was prepped with chlora-prep and draped in sterile fashion 14:16:08 Alarms reviewed by R. N. 14:16:08 Sharps counted by scrub and verified by R.N. 14:18:32 Use device set CHARLENE PPM 14:18:34 2-0 Ticron Multipack ([id number]) opened to sterile field. 14:18:36 3-0 Vicryl Single Pack [id number] opened to sterile field. 14:18:37 5-0 Monocryl PS2 [id number] opened to sterile field. 14:18:37 Cautery Tip Floral Specialist opened to sterile field. 14:18:38 Cautery Pushbutton Pencil opened to sterile field. 14:18:39 Mepilex Dressing ([id number]) opened to sterile field. 14:18:41 Immobilizer Extra Large opened to sterile field. 14:18:52 Medtronic 4074-52 PPM Lead opened to sterile field. 14:20:01 Quick Combo opened to sterile field. 14:20:09 Quick combo pads placed on patients chest and back. 14:20:53 patient pacemaker dependent 14:23:[address] Generator [id number] opened to sterile field. 14:24:03 Oxygen 2 l/min etCO2 Nasal cannula was administered by Karma Tong RN; used for procedure; Verbal order read back and verified. 14:24:12 Vancomycin 1 g I.V.P.B was administered by Karma Tong RN; used for procedure; Verbal order read back and verified. 14:24:19 Vancomycin Irrigation 1 g Topical was administered by Karma Tong RN; used for procedure; Verbal order read back and verified. 14:24:39 Lidocaine 1% 20ml vial x2 added to field was administered by Mane Alarcon MD; for local anesthetic; Verbal order read back and verified. 14:58:45 Physician arrived 14:58:45 --------ALL STOP TIME OUT------ 14:58:46 Final Timeout: patient, procedure, and site verified with staff and physician. All members of the team are in agreement. 14:58:54 Left chest site verified by team. 14:59:05 Fire Safety Assessment: A--An alcohol-based skin anteseptic being used preoperatively., B--The operative or invasive procedure is being performed above the xiphoid process or in the oropharynx., D--An ESU, laser, or fiber-optic light is being used., E--There are other possible contributors. 14:59:11 Physical assessment completed. ASA score P 2 - A patient with mild systemic disease as per Mane Aalrcon MD. 14:59:21 Sedation plan: IV Moderate Sedation Medication:Versed, Fentanyl 14:59:30 Procedure started. 14:59:38 Versed 2 mg I.V. was administered by Karma Tong RN; for sedation; Verbal order read back and verified. 14:59:47 Fentanyl 100 mcg I.V. was administered by Karma Tong RN; for sedation; Verbal order read back and verified. 15:00:13 Medtronic healthcare sales representative LASHONDA CARNEY present for procedure. 15:01:08 Pre sharps counted by scrub and verified by RN: Sutures: 7; Sponges: 5; Stick needles: 2; Skin needles: 1; Blade: 1; Cautery: 1 15:01:10 Grounding pad site Left thigh. 15:01:10 Grounding pad site free from injury. 15:01:14 Lidocaine 1% was administered to left subclavicular area by Ronald Delacruz MD . 15:01:37 Incision made to left subclavicular area. 15:03:29 Generator pocket opened. 15:04:15 Left subclavian vein accessed with 7Fr Peel Away Sheath. 15:05:16 THE PATIENTS WAS CONTACTED AT START OF PROCEDURE. 15:05:35 Versed 1 mg I.V. was administered by Karma Tong RN; for sedation; Verbal order read back and verified. 15:05:39 Fentanyl 50 mcg I.V. was administered by Karma Tong RN; for sedation; Verbal order read back and verified. 15:06:57 Ventricular lead inserted and advanced. 15:08:39 Ventricular lead positioned. 15:08:43 Ventricular lead tested. 15:09:15 Peel-a-way sheath was split and removed. 15:10:42 OLD GENERATOR IS REMOVED. 15:10:43 PPM Dual was attached to lead(s) and inserted into pocket. 15:11:01 PPM Dual was interrogated. 15:11:07 PPM Dual was inserted subcutaneously to left chest. 15:18:20 Procedure type changed to Cath procedure, Diagnostic procedure, PPM/ICD, Permanent Pacer Generator Exg., Generator Removal, Lead Replacement Single 15:21:27 Device pocket was irrigated with Vancomycin. 15:21:40 Ventricular lead attachment was completed with 2-0 ticron. 15:22:13 Generator was sutured in place with 2-0 ticron. 15:22:31 Subcutaneous closure was completed with 3-0 vicryl plus. 15:22:40 Skin closure was completed with 5-0 monocryl. 15:23:30 Parameters-- Generator: Mode: DDDR. Lower Rate: 60bpm. Upper Rate: 120bpm. 15:24:28 Parameters--Ventricular P/R Wave: 6.5mV. Current: 0.3mA; Threshold: 0.3V; Impedence: 1173OHMS. 15:25:04 Lt Chest incision was dressed with Mepilex dressing. 15:25:11 Procedure ended.(Physican Out) 15:25:19 Fluoroscopy time 00.80 minutes. ::28 Fluoroscopy dose: 26.63 mGy 15::28 Flurop Dose total: 26.63 15:25:36 Dose Area Product 316.59 mGy/cm. 15:25:38 Sharps counted by scrub and verified by R.N. 15:26:22 Post sharps counted by scrub and verified by RN: Sutures: 7; Sponges: 5; Stick needles: 2; Skin needles: 1; Blade: 1; Cautery: 1 15:28:55 Post Chest area:stable 15:29:03 Post-procedure physical assessment completed. ASA score P 2 - A patient with mild systemic disease as per Mane Alarcon MD. 15:29:08 Post procedure rhythm: paced 15:29:13 Estimated blood loss: 10 ml 15:29:15 Post procedure instruction explained to patient.Patient verbalizes understanding. 15:29:16 Patient needs reinforcement of post procedure teaching. 15:29:20 Procedure and supply charges have been captured, reviewed, submitted and are correct. 15:29:53 Procedure Complication : No complications 15:29:56 Vital chart was stopped 15:30:09 Operative report dictated upon procedure completion. 15:30:10 See physician's report for complete and final results. 15:30:14 Report given to Pre/Post Procedure Room. 15:30:19 Patient transfered to Pre/Post Procedure Room with Stretcher. 15:30:22 Procedure ended. 15:30:22 Full Disclosure recording stopped 15:30:26 End room use (Document Last) Device Usage Item Name Manufacture Quantity Catalog Hospital Part Current Mini mal Lot# / Number Charge Number Stock Stock Serial# Code 2-0 Ticron Ethicon 7 [id number] 5 Multipack ([id number]) 3-0 Vicryl Ethicon 1 [id number] 917849 199316 117045 5 Single Pack [id number] 5-0 Monocryl Ethicon 1 [id number] 378538 995448 808732 5 PS2 Y495G Cautery Tip Microtek 1 [id number] 821092 625049 5 [employer] Cautery Microtek 1 [id number] 832672 92135 [id number] 5 Push[employer] Pencil Mepilex Cardinal 1 143835 994996 259357 252134 5 [facility] ([id number]) Immobilizer Cardinal 1 [id number] [id number] 281680 5 Extra Large Health Medtronic Medtronic 1 4074-52 294366 044917 390940 5 [id number] 4074-52 PPM EXP Lead 07-26-2021 Planday 1 [id number] 561125 226061 [id number] 5 Medtronic Medtronic 1 [id number] 097544 [id number] 247531 [id number] EXP Generator 02-16-2021 [id number] Signature Audit [place] Stage Time Signature Unsigned Intra-Procedure 10/11/2019 Latasha 3:32:53 PM Barbara RT(R) (CV) Intra-Procedure 10/11/2019 Karma Tong RN 3:33:27 PM Intra-Procedure 10/11/[address] 3:33:52 PM Leandro BUSTAMANTE [facility] [address] [place] [address]
[~2019-10-11 11:48] MED LIST changes: +ALBUTEROL SULF8.5 GM INH
[2019-10-11] MEDS ORDERED: LASIX40 MG PO (12:37)
[2019-10-11] MEDS ORDERED: OMEPRAZOLE20 M1 PO (12:38)
[2019-10-11] MEDS ORDERED: K-DUR20 MEQ PO (12:38)
[2019-10-11] MEDS ORDERED: BAYER CHEWABLE81 MG PO (12:40)
[2019-10-11 12:57] VITALS: BP 126/63; Ht 172.7 cm; Wt 81.8 kg
--- NOTE | 2019-10-11 13:10 | NUR ---
AFTER ADMISSION ASSESSMENT COMPLETED PT STATES FOR VALUABLES HE HAS A PHONE AND A WALLET WITH APPROX 300.00 IN [place] IN IT. HE DECLINES LOCKING THEM UP AND IS OK LEAVING IN HIS ROOM.
[2019-10-11 13:15] LABS: HEMATOCRIT 40.4 % (42.0-54.0); HEMOGLOBIN 12.3 g/dL (13.5-17.5); MCH 23.9 pg (26.0-34.0); MCHC 30.4 g/dL (31.0-37.0); MCV 78.4 fL (80.0-100.0); MEAN PLATELET VOLUME 9.2 fL (7.4-10.4); RBC 5.15 10x6/uL (4.20-6.10); RDW 15.3 % (11.5-14.5); WBC 6.3 10x3/uL (4.8-10.8)
[2019-10-11 13:23] LABS: APTT 28.7 SECONDS (22.8-39.4); INR 1.02 (0.85-1.17); PROTIME 13.4 SECONDS (11.6-15.0)
[2019-10-11 13:37] LABS: CALC OSMOLALITY 284 mosm/kg (275-300); CALCIUM 8.5 mg/dL (8.5-10.1); CARBON DIOXIDE 27.9 mmol/L (21.0-32.0); CHLORIDE - SERUM 108 mmol/L (98-107); GLUCOSE 102 mg/dL (74-106); POTASSIUM - SERUM 3.8 mmol/L (3.5-5.1); SODIUM 142 mmol/L (136-145); UREA NITROGEN 19 mg/dL (7-18); eGFR NON AFRICAN AMERICAN 76 mL/min (90-120)
--- NOTE | 2019-10-11 15:37 | NUR ---
REC TO ROOM VIA STRETCHER FROM SIDE TRIMMER. MONITORING INITIATED. IV VANCOMYCIN INFUSION CONTINUES TO L AC 22G WHICH IS PATENT. L ARM IN SLING, DRESSING TO LEFT SUBCLAVIAN AREA CDI. NO S/S BLEEDING OR HEMATOMA AT POCKET SITE. PACED RHYTHM AT 60, BP 123/63.
--- NOTE | 2019-10-11 16:30 | NUR ---
GWEN CHEST DRESSING CDI, BP 139/66, PACED RHYTHM AT 60, SAT 96% ON ROOM AIR. NO S/S BLEEDING OR HEMATOMA AT POCKET SITE.
--- NOTE | 2019-10-11 16:45 | NUR ---
GWEN CHEST DRESSING CDI. NO S/S BLEEDING OR HEMATOMA TO POCKET. VANCOMYCIN INFUSION COMPLETED. IV DC TIP INTACT, MONITORING DISCONTINUED. ASSIST PT TO DRESS WITH PROTECTION TO LUE, INSTRUCTED NOT TO RAISE ARM HIGHER THAN PARALLEL TO THE FLOOR OR DO ANY LIFTING W L ARM FOR TWO WEEKS. VERBALIZES UNDERSTANDING.
--- NOTE | 2019-10-11 17:15 | NUR ---
PT AMBULATED TO REST ROOM AND BACK. DISCHARGE TEACHING COMPLETED. DC HOME VIA WHEELCHAIR TO PRIVATE CAR.PT HAS ALL BELONGINGS.
--- NOTE | 2019-10-14 08:58 | OP ---
PATIENT NAME: SJ BOYER MEDICAL RECORD: [id number] :38 LOCATION:D.CAT ADMISSION DATE: SURGEON: OLMAN SAAVEDRA MD DATE OF OPERATION: 10/11/2019 PROCEDURE: Lead portion of permanent pacemaker placement. INDICATION: Generator end of life in a malfunctioning ventricular lead. SURGEON: Ronald Delacruz MD DESCRIPTION OF PROCEDURE: After the previous pocket was opened via Dr. Delacruz and the left subclavian was cannulated via modified Seldinger technique, we placed the new right ventricular lead in the RV apex without difficulty. After adequate thresholds and R waves were obtained, the indwelling atrial lead and the new ventricular lead were attached to appropriate poles of the new generator and the pocket was closed via Dr. Delacruz. IMPRESSION: Successful lead placement of ventricular lead for malfunctioning V lead on Sj Boyer as well as a successful generator change. COMPLICATIONS: None. ESTIMATED BLOOD LOSS: Minimal. DISPOSITION: To the floor, stable. TRANSINT:[id number] Voice Confirmation ID: [id number] DOCUMENT ID: [id number] OLMAN SAAVEDRA MD at 0858 CC: [id number] DICTATION DATE: 10/11/19 1520 CASTING HOUSE LABORER: 10/11/19 1737 DEP CLI 10/11/19 [place] [id number] [place] [address]
--- NOTE | 2019-10-21 13:30 | OP ---
PATIENT NAME: SHERLEY CROCKETT MEDICAL RECORD: [id number] :38 LOCATION:D.CAT ADMISSION DATE: SURGEON: RONALD CHANG MD DATE OF OPERATION: 10/11/2019 PREOPERATIVE DIAGNOSES: 1. End-of-life pacemaker generator. 2. Malfunctioning ventricular lead. PROCEDURE: 1. Pacemaker generator exchange. 2. Placement of a new ventricular lead. SURGEON: Ronald Chang MD CO-SURGEON: Mane Delong MD REPORT OF PROCEDURE: The patient's left chest was prepped and draped in sterile fashion. A 20 mL of 1% lidocaine with epinephrine was infused into the surrounding tissues. An oblique incision was reopened in the left upper lateral chest and electrocautery was used to dissect down to the indwelling pacemaker. This pacemaker and the leads were freed up and eviscerated from the wound. We then used a needle to access the patient's left subclavian vein and a guidewire was advanced with ease. Fluoro was used to note that the wire was in good position in the venous system. A dilator trocar device was placed over the wire and the wire and dilator were removed. The new ventricular lead was advanced through the trocar until it rested in the superior vena cava. Dr. Delong positioned the ventricular lead appropriately in the patient's right ventricle. Once this was noted to be in good position and functioning appropriately, then this was sutured down with a 2-0 Ti-Cron. The indwelling pacemaker was detached and the new ventricular lead and the old atrial lead were placed on a new pacemaker generator. This was placed into the subcutaneous pouch and sutured down to the pectoral fascia with a single interrupted 2-0 Ti-Cron. The old V lead was capped off and tied off with a 2-0 Ti-Cron. The wound was then irrigated out with antibiotic solution. The subcutaneous tissues were reapproximated with interrupted 3-0 Vicryl and the skin was closed with running subcutaneous 5-0 Monocryl. COMPLICATIONS: None. CONDITION: Stable. ANESTHESIA: Local MAC. BLOOD LOSS: Minimal. TRANSINT:[id number] Voice Confirmation ID: [id number] DOCUMENT ID: [id number] OPERATIVE REPORT [id number] ARLETTEKELSEYRADHASHERLEY Tabor RONALD MCBRIDE MD at 1330 CC: [id number] DICTATION DATE: 10/11/19 1524 CREDIT REFERENCE CLERK: 10/11/19 1744 DEP CLI 10/11/19 [facility] [address] [place] [id number]
== END 2019-10-11 17:15 | disposition home or self-care (01) ==
LOC: D.CATH 11:48
PROVIDERS: ATTEND Internal Medicine Interventional Cardiology
DX: T82.118A Breakdown (mechanical) of other cardiac electronic device, initial encounter (principal); Z45.010 Encounter for checking and testing of cardiac pacemaker pulse generator [battery]; I49.5 Sick sinus syndrome; E78.5 Hyperlipidemia, unspecified; E07.9 Disorder of thyroid, unspecified; I25.10 Atherosclerotic heart disease of native coronary artery without angina pectoris; I48.0 Paroxysmal atrial fibrillation

== ENCOUNTER → 2019-12-06 12:43 | Outpatient (CLI) | payer MEDICARE, BC ==
[2019-10-11 12:57] VITALS: BMI 27.4
[~2019-12-06 12:43] MED LIST changes: +K-DUR20 MEQ PO; +LASIX40 MG PO; +OMEPRAZOLE20 M1 PO
== END | disposition home or self-care (01) ==
LOC: D.CT 12:43
PROVIDERS: ATTEND Internal Medicine Cardiovascular Disease
DX: I71.4 Abdominal aortic aneurysm, without rupture (principal)

== ENCOUNTER → 2020-11-15 07:33 | Outpatient (CLI) | payer MEDICARE, BC ==
[2019-10-11 12:57] VITALS: BMI 27.4
== END | disposition home or self-care (01) ==
LOC: D.CT 07:33
PROVIDERS: ATTEND Internal Medicine Cardiovascular Disease
DX: I71.4 Abdominal aortic aneurysm, without rupture (principal)